=== PATIENT | female | born 1980 | race Caucasian/White ===

== ENCOUNTER 2021-03-22 01:08 | Inpatient (IN) | payer OTHER ==
[~2021-03-22 01:08] MED LIST: Bupivacaine 0.25% 10 ML SDV ONE; Lidocaine 2% with EPINEPHrine 1:200,000 20 ML SDV ONE
[2021-03-22] MEDS ORDERED: Acetaminophen 325 MG Tab PO PRN (01:53)
[2021-03-22] MEDS ORDERED: Calcium Carbonate 500 MG Tab.Chew PO PRN (01:53)
[2021-03-22] MEDS ORDERED: Lidocaine 1% 50 ML MDV INJECT ONE (01:53)
[2021-03-22] MEDS ORDERED: Ondansetron 4 MG/2 ML SDV IVPUSH PRN ×2 (01:53→06:20)
[2021-03-22] MEDS ORDERED: Sodium Chloride 0.9% 10 ML Syringe FLUSH PRN (01:53)
[2021-03-22] MEDS ORDERED: Misoprostol 100 MCG Tab VAG PRN (01:53)
[2021-03-22] MEDS ORDERED: Oxytocin/Lactated Ringers 10 UNIT/1,000 ML BAG IV SCH ×2 (02:00)
[2021-03-22] MEDS ORDERED: Misoprostol 25 MCG (1/4 of 100 MCG) Tab VAG PRN (03:00)
[2021-03-22] MEDS ORDERED: ePHEDrine 50 MG/ML SDV IVPUSH PRN (06:20)
[2021-03-22] MEDS ORDERED: fentaNYL 100 MCG/2 ML SDV EPIDUR PRN (06:20)
--- NOTE | 2021-03-22 06:24 | PCM.PREANE ---
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 down right leg: none present currently), Tingling (left arm on therapy) Other: Reports: Diabetes (Gestational DM: BS=89 @ 0607), Sinus Problem (seasonal allergies) - Physical Assessment NPO Status Date: 03/22/21 NPO Status Time: 06:00 (water) Vital Signs: Last Vital Signs Temp 36.9 C 03/22/21 01:15 Pulse Resp 16 03/22/21 01:15 BP 117/58 L 03/22/21 01:15 Pulse Ox Height: 1.68 m Weight: 125.509 kg ASA Class: 3 Mental Status: Alert & Oriented x3 Airway Class: Mallampati = 2 Dentition: Reports: Normal Dentition, Caries Thyro-Mental Finger Breadths: 3 Mouth Opening Finger Breadths: 3 ROM/Head Extension: Full Lungs: Clear to Auscultation, Normal Respiratory Effort Cardiovascular: Regular Rate, Regular Rhythm, No Murmurs - Lab Values: Laboratory Last Values WBC 11.09 K/mm3 (3.98-10.04) H 03/22/21 02:09 RBC 4.68 M/mm3 (3.98-5.22) 03/22/21 02:09 Hgb 13.7 gm/dl (11.2-15.7) 03/22/21 02:09 Hct 41.0 % (34.1-44.9) 03/22/21 02:09 MCV 87.6 fl (79.4-94.8) 03/22/21 02:09 MCH 29.3 pg (25.6-32.2) 03/22/21 02:09 MCHC 33.4 g/dl (32.2-35.5) 03/22/21 02:09 RDW Std Deviation 44.5 fL (36.4-46.3) 03/22/21 02:09 Plt Count 225 K/mm3 (182-369) 03/22/21 02:09 MPV 10.0 fl (9.4-12.3) 03/22/21 02:09 Neut % (Auto) 64.1 % (34.0-71.1) 03/22/21 02:09 Lymph % (Auto) 26.5 % (19.3-51.7) 03/22/21 02:09 Schleicher % (Auto) 7.8 % (4.7-12.5) 03/22/21 02:09 Eos % (Auto) 1.0 (0.7-5.8) 03/22/21 02:09 Baso % (Auto) 0.1 % (0.1-1.2) 03/22/21 02:09 Neut # (Auto) 7.11 K/mm3 (1.56-6.13) H 03/22/21 02:09 Lymph # (Auto) 2.94 K/mm3 (1.18-3.74) 03/22/21 02:09 Schleicher # (Auto) 0.87 K/mm3 (0.24-0.36) H 03/22/21 02:09 Eos # (Auto) 0.11 K/mm3 (0.04-0.36) 03/22/21 02:09 Baso # (Auto) 0.01 K/mm3 (0.01-0.08) 03/22/21 02:09 POC Glucose 89 mg/dL (70-99) 03/22/21 06:07 Membrane Rupture Positive H 03/22/21 01:15 SARS-CoV-2 RNA (CHAO) Negative (NEGATIVE) 03/22/21 01:31 Above labs reviewed and noted and within acceptable ranges to proceed with epidural if desired. 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: Musculoskeletal History: Reports: Other (See Below) Other Musculoskeletal History: planter fasciatis - Past Surgical History HEENT Surgical History: Reports: Adenoidectomy, Oral Surgery, Tonsillectomy GI Surgical History: Reports: Appendectomy - SUBSTANCE USE Tobacco Use Status *Q: Former Tobacco User Recreational Drug Use History: No - HOME MEDS Home Medications: Home Meds Albuterol [Ventolin HFA] 2 puff .XX Q6HR PRN 03/22/21 [History] Ascorbic Acid [Vitamin C] 500 mg PO DAILY 03/22/21 [History] Aspirin [Aspirin EC] 81 mg PO DAILY 03/22/21 [History] Fexofenadine [Shelley] 180 mg PO DAILY 03/22/21 [History] Fluticasone Propion/Salmeterol [Advair 250-50 Diskus] 1 each IH BID 03/22/21 [History] Fluticasone Propionate [Flonase] 16 gm NS DAILY 03/22/21 [History] Insulin Detemir [Levemir Flextouch] 12 unit SQ BEDTIME 03/22/21 [History] L.acidoph,Paracasei, B.lactis [Probiotic] 1 each PO DAILY 03/22/21 [History] Levocetirizine Dihydrochloride [Xyzal] 5 mg PO DAILY 03/22/21 [History] Montelukast [Singulair] 10 mg PO DAILY 03/22/21 [History] Olopatadine [Patanol 0.1% Ophth Soln] 1 drop EYEBOTH BID 03/22/21 [History] Omeprazole Magnesium [Prilosec Otc] 20 mg PO DAILY 03/22/21 [History] No122/Iron/Folic Acid [ Multi Tablet] 2 each PO DAILY 03/22/21 [History] Zinc 12.5 mg PO DAILY 03/22/21 [History] - CURRENT (IN HOUSE) MEDS Current Meds: Current Medications Acetaminophen (Acetaminophen 325 Mg Tab) 650 mg PO Q4H PRN PRN Reason: Pain (Mild 1-3) and fever Calcium Carbonate/Glycine (Calcium Carbonate 500 Mg Tab.Chew) 1,000 mg PO Q2H PRN PRN Reason: Indigestion Lactated Ringer's (Ringers, Lactated) 1,000 mls @ 100 mls/hr IV ASDIRECTED LEONARD Oxytocin/Lactated Ringer's (Pitocin In Lr 10 Units/1,000 Ml) 10 unit in 1,000 mls @ 500 mls/hr IV .CONTINUOUS LEONARD Oxytocin/Lactated Ringer's (Pitocin In Lr 10 Units/1,000 Ml) 10 unit in 1,000 mls @ 12 mls/hr IV TITRATE LEONARD; Protocol Misoprostol (Misoprostol 25 Mcg (1/4 Of 100 Mcg) Tab) 25 mcg VAG Q4HR PRN PRN Reason: cervical ripening Last Admin: 03/22/21 02:37 Dose: 25 mcg Documented by: Nalbuphine HCl (Nalbuphine 10 Mg/1 Ml Vial) 10 mg IVPUSH Q2H PRN PRN Reason: Pain Ondansetron HCl (Ondansetron 4 Mg/2 Ml Sdv) 4 mg IVPUSH Q4H PRN PRN Reason: Nausea/Vomiting Sodium Chloride (Sodium Chloride 0.9% 10 Ml Syringe) 10 ml FLUSH ASDIRECTED PRN PRN Reason: Keep Vein Open Discontinued Medications Lidocaine HCl (Lidocaine 1% 50 Ml Mdv) 50 ml INJECT ONETIME ONE Stop: 03/22/21 01:54 Misoprostol (Misoprostol 100 Mcg Tab) 25 mcg VAG Q4HR PRN PRN Reason: cervical ripening
[2021-03-22] MEDS ORDERED: Bupivacaine/fentaNYL/NS 100 ML Bag EPIDUR SCH (06:30)
--- NOTE | 2021-03-22 07:31 | PCM.LDHP ---
L&D History of Present Illness - General Date of Service: 03/22/21 Admit Problem/Dx: Patient Status Order with Admit Dx/Problem 03/22/21 01:15 Patient Status [ADT] Routine 03/22/21 01:55 Patient Status [ADT] Routine Admission Diagnosis/Problem Admission Diagnosis/Problem Term Source of Information: Patient History Limitations: Reports: No Limitations - History of Present Illness Introduction:: Patient is a 41 y/o at 37 0/7 wks who in early AM hours with PROM . This occurred yesterday at 2300 or so. Not initially patricia much when presented. Was given one dose of Cytotec early this AM around 0230 and now notes contractions more notable and bothersome - Related Data Allergies/Adverse Reactions: Allergies Allergy/AdvReac Type Severity Reaction Status Date / Time lactose Allergy Diarrhea Verified 03/22/21 02:10 Home Medications: Home Meds Albuterol [Ventolin HFA] 2 puff .XX Q6HR PRN 03/22/21 [History] Ascorbic Acid [Vitamin C] 500 mg PO DAILY 03/22/21 [History] Aspirin [Aspirin EC] 81 mg PO DAILY 03/22/21 [History] Fexofenadine [Shelley] 180 mg PO DAILY 03/22/21 [History] Fluticasone Propion/Salmeterol [Advair 250-50 Diskus] 1 each IH BID 03/22/21 [History] Fluticasone Propionate [Flonase] 16 gm NS DAILY 03/22/21 [History] Insulin Detemir [Levemir Flextouch] 12 unit SQ BEDTIME 03/22/21 [History] L.acidoph,Paracasei, B.lactis [Probiotic] 1 each PO DAILY 03/22/21 [History] Levocetirizine Dihydrochloride [Xyzal] 5 mg PO DAILY 03/22/21 [History] Montelukast [Singulair] 10 mg PO DAILY 03/22/21 [History] Olopatadine [Patanol 0.1% Ophth Soln] 1 drop EYEBOTH BID 03/22/21 [History] Omeprazole Magnesium [Prilosec Otc] 20 mg PO DAILY 03/22/21 [History] No122/Iron/Folic Acid [ Multi Tablet] 2 each PO DAILY 03/22/21 [History] Zinc 12.5 mg PO DAILY 03/22/21 [History] Past Medical History Respiratory History: Reports: Asthma Other Respiratory History: environmental allergies 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 LMP (Approximate): Musculoskeletal History: Reports: Other (See Below) Other Musculoskeletal History: plantar fasciitis Dermatologic History: Reports: Eczema - Infectious Disease History Infectious Disease History: Reports: Meningitis (Viral) - Past Surgical History HEENT Surgical History: Reports: Adenoidectomy, Oral Surgery, Tonsillectomy GI Surgical History: Reports: Appendectomy Social & Family History - Family History Family Medical History: Unobtainable - Tobacco Use Tobacco Use Status *Q: Former Tobacco User Used Tobacco, but Quit: Yes Month/Year Tobacco Last Used: 09/2006 - Alcohol Use Alcohol Use History: No - Recreational Drug Use Recreational Drug Use: No H&P Review of Systems - Review of Systems: Review Of Systems: See Below General: Reports: No Symptoms Pulmonary: Reports: No Symptoms Cardiovascular: Reports: No Symptoms Gastrointestinal: Reports: Abdominal Pain Genitourinary: Reports: No Symptoms Musculoskeletal: Reports: No Symptoms Skin: Reports: No Symptoms Psychiatric: Reports: No Symptoms Neurological: Reports: No Symptoms L&D Exam - Exam Exam: See Below - Vital Signs Vital Signs: Last Vital Signs Temp 36.9 C 03/22/21 01:15 Pulse Resp 16 03/22/21 01:15 BP 117/58 L 03/22/21 01:15 Pulse Ox Weight: 125.509 kg - OB Specific Contraction Intensity: Moderate Movement: Active Heart Tones: Present Heart Tones per Min: 120 Heart Rate (FHR) Variability: Moderate (6-25 bpm) Presentation: Vertex - Palacios Score Palacios Score Cervix Position: Anterior Palacios Score Consistency: Soft Palacios Score Effacement: 51-70% Palacios Score Dilation: 1-2 cm Palacios Score 's Station: -2 Palacios Score Total: 8 - Exam General: Alert, Oriented, Cooperative Lungs: Clear to Auscultation, Normal Respiratory Effort Cardiovascular: Regular Rate, Regular Rhythm GI/Abdominal Exam: Soft, Non-Tender Genitourinary: Normal external exam Extremities: Normal Inspection Skin: Warm, Dry, Intact - Patient Data Lab Results Last 24 hrs: Laboratory Results - last 24 hr 03/22/21 03/22/2103/22/21 Range/Units 01:15 01:31 02:09 WBC 11.09 H (3.98-10.04) K/mm3 RBC 4.68 (3.98-5.22) M/mm3 Hgb 13.7 (11.2-15.7) gm/dl Hct 41.0 (34.1-44.9) % MCV 87.6 (79.4-94.8) fl MCH 29.3 (25.6-32.2) pg MCHC 33.4 (32.2-35.5) g/dl RDW Std Deviation 44.5 (36.4-46.3) fL Plt Count 225 (182-369) K/mm3 MPV 10.0 (9.4-12.3) fl Neut % (Auto) 64.1 (34.0-71.1) % Lymph % (Auto) 26.5 (19.3-51.7) % Merrick % (Auto) 7.8 (4.7-12.5) % Eos % (Auto) 1.0 (0.7-5.8) Baso % (Auto) 0.1 (0.1-1.2) % Neut # (Auto) 7.11 H (1.56-6.13) K/mm3 Lymph # (Auto) 2.94 (1.18-3.74) K/mm3 Merrick # (Auto) 0.87 H (0.24-0.36) K/mm3 Eos # (Auto) 0.11 (0.04-0.36) K/mm3 Baso # (Auto) 0.01 (0.01-0.08) K/mm3 POC Glucose (70-99) mg/dL Membrane Rupture Positive H SARS-CoV-2 RNA (CHAO) Negative (NEGATIVE) 03/22/21 03/22/21 Range/Units 02:20 06:07 WBC (3.98-10.04) K/mm3 RBC (3.98-5.22) M/mm3 Hgb (11.2-15.7) gm/dl Hct (34.1-44.9) % MCV (79.4-94.8) fl MCH (25.6-32.2) pg MCHC (32.2-35.5) g/dl RDW Std Deviation (36.4-46.3) fL Plt Count (182-369) K/mm3 MPV (9.4-12.3) fl Neut % (Auto) (34.0-71.1) % Lymph % (Auto) (19.3-51.7) % Merrick % (Auto) (4.7-12.5) % Eos % (Auto) (0.7-5.8) Baso % (Auto) (0.1-1.2) % Neut # (Auto) (1.56-6.13) K/mm3 Lymph # (Auto) (1.18-3.74) K/mm3 Merrick # (Auto) (0.24-0.36) K/mm3 Eos # (Auto) (0.04-0.36) K/mm3 Baso # (Auto) (0.01-0.08) K/mm3 POC Glucose 84 89 (70-99) mg/dL Membrane Rupture SARS-CoV-2 RNA (CHAO) (NEGATIVE) Result Diagrams: 03/22/21 02:09 - Problem List (1) 37 weeks gestation of SNOMED Code(s): 45553429 ICD Code: Z3A.37 - 37 WEEKS GESTATION OF Status: Acute Current Visit: Yes (2) Gestational diabetes requiring insulin SNOMED Code(s): 75361503, 920138454 ICD Code: O24.414 - GESTATIONAL DIABETES IN , INSULIN CONTROLLED Status: Acute Current Visit: Yes (3) Premature rupture of membranes SNOMED Code(s): 87534985 ICD Code: O42.90 - ALLYSON ROM, 7TH0 BETW RUPT & ONST LABR, UNSP WEEKS OF GEST Status: Acute Current Visit: Yes Qualifiers: PROM onset of labor timing: unspecified duration between rupture of membranes and onset of labor PROM gestational age: full term Qualified Code(s): O42.92 - Full-term premature rupture of membranes, unspecified as to length of time between rupture and onset of labor Problem List Initiated/Reviewed/Updated: Yes Orders Last 24hrs: Active Orders 24 hr Category Date Time Status Patient Status [ADT] Routine ADT 03/22/21 01:55 Active Activity as Tolerated [RC] PFP Care 03/22/21 01:55 Active Blood Glucose Check, Bedside [RC] Q4HR Care 03/22/21 01:15 Active Communication Order [RC] ASDIRECTED Care 03/22/21 01:55 Active Communication Order [RC] ASDIRECTED Care 03/22/21 01:55 Active Communication Order [RC] ASDIRECTED Care 03/22/21 01:55 Active Communication Order [RC] ASDIRECTED Care 03/22/21 01:55 Active Heart Tones [RC] ASDIRECTED Care 03/22/21 01:56 Active Monitoring [RC] INTERMITTENT Care 03/22/21 01:55 Active Notify Provider [RC] ASDIRECTED Care 03/22/21 01:55 Active Notify Provider [RC] ASDIRECTED Care 03/22/21 06:20 Active Notify Provider [RC] PFP Care 03/22/21 01:55 Active Notify Provider [RC] PRN Care 03/22/21 01:55 Active Oxygen Therapy [RC] ASDIRECTED Care 03/22/21 06:20 Active Peripheral IV Care [RC] Q4HR Care 03/22/21 01:56 Active Pulse Oximetry [RC] ASDIRECTED Care 03/22/21 06:20 Active Pump Management, Intrathecal [RC] ASDIRECTED Care 03/22/21 01:56 Active Urinary Catheter Assessment [RC] ASDIRECTED Care 03/22/21 01:53 Active Vaginal Exam [RC] ASDIRECTED Care 03/22/21 01:55 Active Regular Diet [DIET] Diet 03/22/21 Breakfast Active BLOOD BANK HOLD SPECIMEN [BBK] Stat Lab 03/22/21 01:53 Ordered RAPID PLASMA REAGIN,RPR [CHEM] Routine Lab 03/22/21 02:09 Received Acetaminophen [TylenoL] Med 03/22/21 01:53 Active 650 mg PO Q4H PRN Bupivacaine/fentaNYL/NS [fentaNYL/Bupivacaine/NS 2 MCG- Med 03/22/21 06:30 Active 0.125% 100 ML] 100 ml EPIDUR ASDIRECTED Calcium Carbonate [Tums] Med 03/22/21 01:53 Active 1,000 mg PO Q2H PRN Lactated Ringers [Ringers, Lactated] 1,000 ml Med 03/22/21 02:00 Active IV ASDIRECTED Nalbuphine [Nubain] Med 03/22/21 01:53 Active 10 mg IVPUSH Q2H PRN Ondansetron [Zofran] Med 03/22/21 06:20 Active 4 mg IVPUSH ONETIME PRN Ondansetron [Zofran] Med 03/22/21 01:53 Active 4 mg IVPUSH Q4H PRN Oxytocin/Lactated Ringers [Pitocin in LR 10 Units/1,000 Med 03/22/21 02:00 Active ML] 10 unit in 1,000 ml IV .CONTINUOUS Oxytocin/Lactated Ringers [Pitocin in LR 10 Units/1,000 Med 03/22/21 02:00 Active ML] 10 unit in 1,000 ml IV TITRATE Phenylephrine HCl In 0.9% NaCl [Phenylephrine 1 MG/10 Med 03/22/21 06:20 Active ML-NS] 0.1 mg IVPUSH Q10M PRN Sodium Chloride 0.9% [Saline Flush] Med 03/22/21 01:53 Active 10 ml FLUSH ASDIRECTED PRN ePHEDrine [ePHEDrine sulfate] Med 03/22/21 06:20 Active 5 mg IVPUSH ASDIRECTED PRN fentaNYL [Sublimaze] Med 03/22/21 06:20 Active 100 mcg EPIDUR Q3H PRN miSOPROStoL [Cytotec] Med 03/22/21 03:00 Active 25 mcg VAG Q4HR PRN Electronic Heart Tones Ext w TOCO [WOMSER] Oth 03/22/21 01:55 Ordered Routine Electronic Heart Tones Internal [WOMSER] Per Unit Oth 03/22/21 01:55 Ordered Routine Peripheral IV Insertion Adult [OM.PC] Routine Oth 03/22/21 01:55 Ordered Resuscitation Status Routine Resus Stat 03/22/21 01:15 Ordered Medication Orders Acetaminophen (Acetaminophen 325 Mg Tab) 650 mg PO Q4H PRN PRN Reason: Pain (Mild 1-3) and fever Calcium Carbonate/Glycine (Calcium Carbonate 500 Mg Tab.Chew) 1,000 mg PO Q2H PRN PRN Reason: Indigestion Ephedrine Sulfate (Ephedrine 50 Mg/Ml Sdv) 5 mg IVPUSH ASDIRECTED PRN PRN Reason: Hypotension Fentanyl (Fentanyl 100 Mcg/2 Ml Sdv) 100 mcg EPIDUR Q3H PRN PRN Reason: Pain Fentanyl/Bupivacaine HCl (Bupivacaine/Fentanyl/Ns 100 Ml Bag) 100 ml EPIDUR ASDIRECTED LEONARD Lactated Ringer's (Ringers, Lactated) 1,000 mls @ 100 mls/hr IV ASDIRECTED LEONARD Oxytocin/Lactated Ringer's (Pitocin In Lr 10 Units/1,000 Ml) 10 unit in 1,000 mls @ 500 mls/hr IV .CONTINUOUS LEONARD Oxytocin/Lactated Ringer's (Pitocin In Lr 10 Units/1,000 Ml) 10 unit in 1,000 mls @ 12 mls/hr IV TITRATE LEONARD; Protocol Miscellaneous Medication (Phenylephrine Hcl In 0.9% Nacl 1 Mg/10 Ml Syringe) 0.1 mg IVPUSH Q10M PRN PRN Reason: Hypotension Misoprostol (Misoprostol 25 Mcg (1/4 Of 100 Mcg) Tab) 25 mcg VAG Q4HR PRN PRN Reason: cervical ripening Last Admin: 03/22/21 02:37 Dose: 25 mcg Documented by: ZACHARY Nalbuphine HCl (Nalbuphine 10 Mg/1 Ml Vial) 10 mg IVPUSH Q2H PRN PRN Reason: Pain Ondansetron HCl (Ondansetron 4 Mg/2 Ml Sdv) 4 mg IVPUSH Q4H PRN PRN Reason: Nausea/Vomiting Ondansetron HCl (Ondansetron 4 Mg/2 Ml Sdv) 4 mg IVPUSH ONETIME PRN PRN Reason: Nausea/Vomiting Sodium Chloride (Sodium Chloride 0.9% 10 Ml Syringe) 10 ml FLUSH ASDIRECTED PRN PRN Reason: Keep Vein Open Assessment/Plan Comment:: * Labs previously done * GBS negative * Blood sugars q4 in early labor, q2 when more active * Received one dose of cytotec on admission as cervix still with long length at that time. Now more effaced. Will switch to pitocin if/when needed * Pain management per patient preference * Anticipate
[2021-03-22] MEDS: Nalbuphine 10 MG/1 ML Vial IVPUSH PRN ×2 (10:04→12:14)
[2021-03-22] MEDS: Lactated Ringers 1,000 ML IV SCH ×5 (10:51→22:49)
--- NOTE | 2021-03-22 12:53 | PCM.PNLD ---
Labor Progress Note - VS & Meds Vital Signs: Last Vital Signs Temp 36.9 C 03/22/21 01:15 Pulse Resp 16 03/22/21 01:15 BP 117/58 L 03/22/21 01:15 Pulse Ox Active Medications: Current Medications Acetaminophen (Acetaminophen 325 Mg Tab) 650 mg PO Q4H PRN PRN Reason: Pain (Mild 1-3) and fever Calcium Carbonate/Glycine (Calcium Carbonate 500 Mg Tab.Chew) 1,000 mg PO Q2H PRN PRN Reason: Indigestion Ephedrine Sulfate (Ephedrine 50 Mg/Ml Sdv) 5 mg IVPUSH ASDIRECTED PRN PRN Reason: Hypotension Fentanyl (Fentanyl 100 Mcg/2 Ml Sdv) 100 mcg EPIDUR Q3H PRN PRN Reason: Pain Fentanyl/Bupivacaine HCl (Bupivacaine/Fentanyl/Ns 100 Ml Bag) 100 ml EPIDUR ASDIRECTED LEONARD Lactated Ringer's (Ringers, Lactated) 1,000 mls @ 100 mls/hr IV ASDIRECTED LEONARD Last Admin: 03/22/21 10:51 Dose: 100 mls/hr Documented by: Oxytocin/Lactated Ringer's (Pitocin In Lr 10 Units/1,000 Ml) 10 unit in 1,000 mls @ 500 mls/hr IV .CONTINUOUS LEONARD Oxytocin/Lactated Ringer's (Pitocin In Lr 10 Units/1,000 Ml) 10 unit in 1,000 mls @ 12 mls/hr IV TITRATE LEONARD; Protocol Last Titration: 03/22/21 12:45 Dose: 0 munits/min, 0 mls/hr Documented by: Insulin Glargine (Insulin Glargine,Hum.Rec.Anlog 100 Unit/Ml 3 Ml Pen) 12 unit SUBCUT BEDTIME LEONARD Miscellaneous Medication (Phenylephrine Hcl In 0.9% Nacl 1 Mg/10 Ml Syringe) 0.1 mg IVPUSH Q10M PRN PRN Reason: Hypotension Nalbuphine HCl (Nalbuphine 10 Mg/1 Ml Vial) 10 mg IVPUSH Q2H PRN PRN Reason: Pain Last Admin: 03/22/21 12:14 Dose: 10 mg Documented by: Ondansetron HCl (Ondansetron 4 Mg/2 Ml Sdv) 4 mg IVPUSH Q4H PRN PRN Reason: Nausea/Vomiting Last Admin: 03/22/21 08:24 Dose: 4 mg Documented by: Ondansetron HCl (Ondansetron 4 Mg/2 Ml Sdv) 4 mg IVPUSH ONETIME PRN PRN Reason: Nausea/Vomiting Sodium Chloride (Sodium Chloride 0.9% 10 Ml Syringe) 10 ml FLUSH ASDIRECTED PRN PRN Reason: Keep Vein Open Discontinued Medications Lidocaine HCl (Lidocaine 1% 50 Ml Mdv) 50 ml INJECT ONETIME ONE Stop: 03/22/21 01:54 Misoprostol (Misoprostol 100 Mcg Tab) 25 mcg VAG Q4HR PRN PRN Reason: cervical ripening Misoprostol (Misoprostol 25 Mcg (1/4 Of 100 Mcg) Tab) 25 mcg VAG Q4HR PRN PRN Reason: cervical ripening Last Admin: 03/22/21 02:37 Dose: 25 mcg Documented by: - Uterine Contractions Uterine Monitoring Mode: External [place] Contraction Intensity: Moderate to Strong - Monitoring Monitor Mode: External Ultrasound Heart Rate (FHR) Baseline: 115 Heart Rate (FHR) Variability: Moderate (6-25 bpm) Accelerations: Present, 15x15 Decelerations: Early, Recurrent (>50% x 20 min) Strip Review: Category I - Vaginal Exam Dilation (cm): 2-3 Effacement (Percent): 90 Station: -2 Cervical Position: Anterior - Labor Progress (Free Text) Labor Progress: On 4 of Pitocin. Early decelerations into the 90's (rare into upper 80's) noted. Patient much more uncomfortable. Will stop Pitocin to allow patient to get her epidural. Will place IUPC/FSE once epidural complete to monitor more closely.
--- NOTE | 2021-03-22 16:42 | PCM.PNLD ---
Labor Progress Note - VS & Meds Vital Signs: Last Vital Signs Temp 36.9 C 03/22/21 01:15 Pulse Resp 16 03/22/21 01:15 BP 117/58 L 03/22/21 01:15 Pulse Ox Active Medications: Current Medications Acetaminophen (Acetaminophen 325 Mg Tab) 650 mg PO Q4H PRN PRN Reason: Pain (Mild 1-3) and fever Calcium Carbonate/Glycine (Calcium Carbonate 500 Mg Tab.Chew) 1,000 mg PO Q2H PRN PRN Reason: Indigestion Ephedrine Sulfate (Ephedrine 50 Mg/Ml Sdv) 5 mg IVPUSH ASDIRECTED PRN PRN Reason: Hypotension Fentanyl (Fentanyl 100 Mcg/2 Ml Sdv) 100 mcg EPIDUR Q3H PRN PRN Reason: Pain Last Admin: 03/22/21 13:08 Dose: 100 mcg Documented by: Fentanyl/Bupivacaine HCl (Bupivacaine/Fentanyl/Ns 100 Ml Bag) 100 ml EPIDUR ASDIRECTED LEONARD Last Admin: 03/22/21 13:09 Dose: 100 ml Documented by: Lactated Ringer's (Ringers, Lactated) 1,000 mls @ 100 mls/hr IV ASDIRECTED LEONARD Last Admin: 03/22/21 14:35 Dose: 100 mls/hr Documented by: Oxytocin/Lactated Ringer's (Pitocin In Lr 10 Units/1,000 Ml) 10 unit in 1,000 mls @ 500 mls/hr IV .CONTINUOUS LEONARD Oxytocin/Lactated Ringer's (Pitocin In Lr 10 Units/1,000 Ml) 10 unit in 1,000 mls @ 12 mls/hr IV TITRATE LEONARD; Protocol Last Titration: 03/22/21 16:40 Dose: 3 munits/min, 18 mls/hr Documented by: Insulin Glargine (Insulin Glargine,Hum.Rec.Anlog 100 Unit/Ml 3 Ml Pen) 12 unit SUBCUT BEDTIME LEONARD Miscellaneous Medication (Phenylephrine Hcl In 0.9% Nacl 1 Mg/10 Ml Syringe) 0.1 mg IVPUSH Q10M PRN PRN Reason: Hypotension Nalbuphine HCl (Nalbuphine 10 Mg/1 Ml Vial) 10 mg IVPUSH Q2H PRN PRN Reason: Pain Last Admin: 03/22/21 12:14 Dose: 10 mg Documented by: Ondansetron HCl (Ondansetron 4 Mg/2 Ml Sdv) 4 mg IVPUSH Q4H PRN PRN Reason: Nausea/Vomiting Last Admin: 03/22/21 08:24 Dose: 4 mg Documented by: Ondansetron HCl (Ondansetron 4 Mg/2 Ml Sdv) 4 mg IVPUSH ONETIME PRN PRN Reason: Nausea/Vomiting Sodium Chloride (Sodium Chloride 0.9% 10 Ml Syringe) 10 ml FLUSH ASDIRECTED PRN PRN Reason: Keep Vein Open Discontinued Medications Lidocaine HCl (Lidocaine 1% 50 Ml Mdv) 50 ml INJECT ONETIME ONE Stop: 03/22/21 01:54 Misoprostol (Misoprostol 100 Mcg Tab) 25 mcg VAG Q4HR PRN PRN Reason: cervical ripening Misoprostol (Misoprostol 25 Mcg (1/4 Of 100 Mcg) Tab) 25 mcg VAG Q4HR PRN PRN Reason: cervical ripening Last Admin: 03/22/21 02:37 Dose: 25 mcg Documented by: - Uterine Contractions Uterine Monitoring Mode: External [place] Contraction Intensity: Moderate to Strong - Monitoring Monitor Mode: External Ultrasound Heart Rate (FHR) Baseline: 115 Heart Rate (FHR) Variability: Moderate (6-25 bpm) Accelerations: Present, 15x15 Decelerations: Early, Recurrent (>50% x 20 min) Strip Review: Category I - Vaginal Exam Dilation (cm): 4-5 Effacement (Percent): 90 Station: -2 Cervical Position: Anterior - Labor Progress (Free Text) Labor Progress: Doing well. Comfortable with epidural. Pitocin currently at 2. Will increase to 3. IUPC placed to facilitate augmentation. Still with deeper early decelerations and some variables.
--- NOTE | 2021-03-22 19:14 | PCM.PNLD ---
Labor Progress Note - VS & Meds Vital Signs: Last Vital Signs Temp 36.9 C 03/22/21 01:15 Pulse Resp 16 03/22/21 01:15 BP 117/58 L 03/22/21 01:15 Pulse Ox Active Medications: Current Medications Acetaminophen (Acetaminophen 325 Mg Tab) 650 mg PO Q4H PRN PRN Reason: Pain (Mild 1-3) and fever Calcium Carbonate/Glycine (Calcium Carbonate 500 Mg Tab.Chew) 1,000 mg PO Q2H PRN PRN Reason: Indigestion Ephedrine Sulfate (Ephedrine 50 Mg/Ml Sdv) 5 mg IVPUSH ASDIRECTED PRN PRN Reason: Hypotension Fentanyl (Fentanyl 100 Mcg/2 Ml Sdv) 100 mcg EPIDUR Q3H PRN PRN Reason: Pain Last Admin: 03/22/21 13:08 Dose: 100 mcg Documented by: Fentanyl/Bupivacaine HCl (Bupivacaine/Fentanyl/Ns 100 Ml Bag) 100 ml EPIDUR ASDIRECTED LEONARD Last Admin: 03/22/21 13:09 Dose: 100 ml Documented by: Lactated Ringer's (Ringers, Lactated) 1,000 mls @ 100 mls/hr IV ASDIRECTED LEONARD Last Admin: 03/22/21 14:35 Dose: 100 mls/hr Documented by: Oxytocin/Lactated Ringer's (Pitocin In Lr 10 Units/1,000 Ml) 10 unit in 1,000 mls @ 500 mls/hr IV .CONTINUOUS LEONARD Oxytocin/Lactated Ringer's (Pitocin In Lr 10 Units/1,000 Ml) 10 unit in 1,000 mls @ 12 mls/hr IV TITRATE LEONARD; Protocol Last Titration: 03/22/21 18:20 Dose: 4 munits/min, 24 mls/hr Documented by: Insulin Glargine (Insulin Glargine,Hum.Rec.Anlog 100 Unit/Ml 3 Ml Pen) 12 unit SUBCUT BEDTIME LEONARD Miscellaneous Medication (Phenylephrine Hcl In 0.9% Nacl 1 Mg/10 Ml Syringe) 0.1 mg IVPUSH Q10M PRN PRN Reason: Hypotension Nalbuphine HCl (Nalbuphine 10 Mg/1 Ml Vial) 10 mg IVPUSH Q2H PRN PRN Reason: Pain Last Admin: 03/22/21 12:14 Dose: 10 mg Documented by: Ondansetron HCl (Ondansetron 4 Mg/2 Ml Sdv) 4 mg IVPUSH Q4H PRN PRN Reason: Nausea/Vomiting Last Admin: 03/22/21 08:24 Dose: 4 mg Documented by: Ondansetron HCl (Ondansetron 4 Mg/2 Ml Sdv) 4 mg IVPUSH ONETIME PRN PRN Reason: Nausea/Vomiting Sodium Chloride (Sodium Chloride 0.9% 10 Ml Syringe) 10 ml FLUSH ASDIRECTED PRN PRN Reason: Keep Vein Open Discontinued Medications Lidocaine HCl (Lidocaine 1% 50 Ml Mdv) 50 ml INJECT ONETIME ONE Stop: 03/22/21 01:54 Misoprostol (Misoprostol 100 Mcg Tab) 25 mcg VAG Q4HR PRN PRN Reason: cervical ripening Misoprostol (Misoprostol 25 Mcg (1/4 Of 100 Mcg) Tab) 25 mcg VAG Q4HR PRN PRN Reason: cervical ripening Last Admin: 03/22/21 02:37 Dose: 25 mcg Documented by: - Uterine Contractions Uterine Monitoring Mode: IUPC Contraction Intensity: Moderate to Strong - Monitoring Monitor Mode: External Ultrasound Heart Rate (FHR) Baseline: 120 Heart Rate (FHR) Variability: Moderate (6-25 bpm) Accelerations: Present, 15x15 Decelerations: Early, Variable, Recurrent (>50% x 20 min) Strip Review: Category I - Vaginal Exam Dilation (cm): 6-7 Effacement (Percent): 90 Station: -1 Cervical Position: Anterior - Labor Progress (Free Text) Labor Progress: Doing well. On 4 of pitocin. No signs of infection. Continue present management
[2021-03-22] MEDS ORDERED: Insulin Glargine,Hum.Rec.Anlog 100 UNIT/ML 3 ML Pen SUBCUT SCH (21:00)
[2021-03-22] MEDS ORDERED: ceFAZolin 1 GM in Sodium Chloride 0.9% 100 ML IV ONE (22:29)
[2021-03-22] MEDS ORDERED: Azithromycin 500 MG in Sodium Chloride 0.9% 250 ML IV ONE (22:29)
[2021-03-22] MEDS ORDERED: Metoclopramide 10 MG/2 ML SDV IVPUSH ONE (22:29)
[2021-03-22] MEDS ORDERED: Citric Acid/Sodium Citrate Solution 30 ML Cup PO ONE (22:29)
[2021-03-22] MEDS ORDERED: ceFAZolin 2 GM in Premix Bag 1 BAG IV ONE (22:29)
--- NOTE | 2021-03-22 22:42 | PCM.SN.2 ---
- Free Text/Narrative Note: 2229 Patient with no change in cervical exam in last 3 hours. Reviewed no overt signs of chorioamnionitis, but starting to have a shift up in baseline. Reviewed could certainly try to continue to increase Pitocin, but concerns are potentially for CPD. Patient expressed understanding. After discussion does agree to . Ancef and Azithromycin pumping station engineer to OR. Jannette Leavitt MD
--- NOTE | 2021-03-22 22:50 | PCM.OPNOTE ---
- General Post-Op/Procedure Note Date of Surgery/Procedure: 03/22/21 Operative Procedure(s): Primary low transverse Findings: Baby girl in a vertex presentation. Weight of 2.97 kg. APGARS of 8 & 9. Grossly normal appearance of the uterus, fallopian tubes, and ovaries. Pre Op Diagnosis: AMA. GODMA2. PROM. FTP in 1st stage Post-Op Diagnosis: Same Anesthesia Technique: Epidural Primary Surgeon: Jannette Leavitt Secondary Surgeon: Reji Bejarano Anesthesia Provider: Piyush Hannah Reason Logistics Intern Was Necessary: BMI of patient. Speed/safety of procedure Pathology: Cord blood collected. Placenta discarded Fluid Replacement, Intraop: 1,300 Output, Urine Amount: 150 EBL in mLs: 1,000 Complications: None Condition: Good Free Text/Narrative:: The risks, benefits, indications, potential complications, and alternatives were explained to the patient and informed consent obtained. After induction of anesthesia, the patient was placed in a supine position and then draped and prepped in the usual sterile manner. A Pfannenstiel incision was made and carried down through the subcutaneous tissue to the fascia. Fascial incision was made and extended transversely. The fascia was from the underlying rectus tissue superiorly and inferiorly. The peritoneum was identified and entered. Peritoneal incision was extended longitudinally. The utero-vesical peritoneal reflection was incised transversely and the bladder flap was bluntly freed from the lower uterine segment. A low transverse uterine incision was made sharply with a scalpel and extended bluntly in a cephalocaudad direction. A baby girl was delivered from a vertex presentation with APGARS as above. After the umbilical cord was clamped and cut cord blood was obtained for evaluation. The placenta was removed intact and appeared normal. The uterus was exteriorized and cleared of clots. The uterine outline, tubes and ovaries appeared normal. The uterine incision was closed with running locked sutures of 0 Vicryl. Hemostasis was obtained with a second imbricating layer of 0 Vicryl. The uterus was then placed back into the abdomen. The infracolic gutters were cleared of blood clots. Slight oozing noted from surfaces on uterus and so Noe- Seal placed along hysterotomy The fascia was then reapproximated with running sutures of 0 Vicryl. The subcutaneous tissue was irrigated with sterile warm normal saline, hemostasis obtained with cautery. This layer was also closed with a running 0 Vicryl. The skin was reapproximated with running Subcuticular 4-0 Monocryl sutures. The incision was sealed with Dermabond. Instrument, sponge, and needle counts were correct prior the abdominal closure and at the conclusion of the case.
[2021-03-22] MEDS ORDERED: fentaNYL 100 MCG/2 ML SDV ONE (23:14)
[2021-03-22] MEDS ORDERED: ceFAZolin 1 GM Vial ONE (23:15)
[2021-03-22] MEDS ORDERED: Dexmedetomidine 200 MCG/2 ML SDV ONE (23:25)
[2021-03-22] MEDS ORDERED: Oxytocin 10 Units/1 ML SDV ONE (23:35)
[2021-03-22] MEDS ORDERED: Morphine PF 10 MG/10 ML SDV ONE (23:40)
[2021-03-22] MEDS ORDERED: diphenhydrAMINE 50 MG/ML SDV IVPUSH PRN (23:54)
[2021-03-22] MEDS ORDERED: fentaNYL 100 MCG/2 ML SDV IVPUSH PRN (23:54)
[2021-03-22] MEDS ORDERED: Lactated Ringers 1,000 ML ONE (23:55)
[2021-03-23] MEDS ORDERED: Oxytocin 10 Units/1 ML SDV ONE (00:10)
[2021-03-23] MEDS ORDERED: Ketorolac 30 MG/ML SDV ONE (00:13)
--- NOTE | 2021-03-23 00:25 | PCM.POSTAN ---
POST ANESTHESIA ASSESSMENT - MENTAL STATUS Mental Status: Alert, Oriented - VITAL SIGNS Vital Signs: Last Vital Signs 127/54, 84 HR, 95% 13 RR 97.2 F - RESPIRATORY Respiratory Status: Respiratory Rate WNL, Airway Patent, O2 Saturation Stable - CARDIOVASCULAR CV Status: Pulse Rate WNL, Blood Pressure Stable - GASTROINTESTINAL GI Status: No Symptoms - PAIN Pain Score: 0 (post epidural) - POST OP HYDRATION Hydration Status: Adequate & Stable
[2021-03-23] MEDS ORDERED: diphenhydrAMINE 50 MG/ML SDV IVPUSH PRN (02:14)
[2021-03-23] MEDS ORDERED: Dextrose 5%-Lactated Ringers 1,000 ML IV SCH (02:14)
[2021-03-23] MEDS ORDERED: Naloxone 0.4 MG/ML SDV IVPUSH PRN (02:14)
[2021-03-23] MEDS: Ondansetron 4 MG/2 ML SDV IVPUSH PRN ×2 (03:16→23:26)
[2021-03-23] MEDS: Acetaminophen/oxyCODONE 325-5 MG Tab PO PRN ×3 (03:16→23:25)
[2021-03-23] MEDS: Ketorolac 30 MG/ML SDV IVPUSH SCH ×3 (06:21→20:24)
--- NOTE | 2021-03-23 06:50 | PCM48HPAN ---
Post Anesthesia Note - EVALUATION WITHIN 48HRS OF ANESTHETIC Vital Signs in Normal Range: Yes Patient Participated in Evaluation: Yes Respiratory Function Stable: Yes Airway Patent: Yes Cardiovascular Function Stable: Yes Hydration Status Stable: Yes Pain Control Satisfactory: Yes Nausea and Vomiting Control Satisfactory: Yes Mental Status Recovered: Yes Vital Signs: Last Vital Signs Temp 36.6 C 03/23/21 03:47 Pulse 72 03/23/21 05:02 Resp 14 03/23/21 06:00 BP 99/55 L 03/23/21 05:02 Pulse Ox 98 03/23/21 05:02
--- NOTE | 2021-03-23 07:37 | PCM.PNPP ---
- General Info Date of Service: 03/23/21 Functional Status: Reports: Pain Controlled, Tolerating Diet - Review of Systems General: Reports: No Symptoms Pulmonary: Reports: No Symptoms Cardiovascular: Reports: No Symptoms Gastrointestinal: Denies: Abdominal Pain Genitourinary: Reports: No Symptoms Musculoskeletal: Reports: No Symptoms - General Info Date of Service: 03/23/21 - Patient Data Vital Signs - Most Recent: Last Vital Signs Temp 36.6 C 03/23/21 03:47 Pulse 72 03/23/21 05:02 Resp 14 03/23/21 06:00 BP 99/55 L 03/23/21 05:02 Pulse Ox 98 03/23/21 05:02 Weight - Most Recent: 125.509 kg I&O - Last 24 Hours: Intake & Output 03/22/21 03/23/21 03/23/21 22:59 06:59 14:59 Intake Total 5470 Output Total 725 746 Balance -725 4724 Lab Results - Last 24 Hours: Laboratory Results - last 24 hr 03/22/21 03/22/21 03/22/21 Range/Units 02:09 02:09 10:03 POC Glucose 99 (70-99) mg/dL RPR Non-reactive (NONREACTIVE) Blood Type O POSITIVE Gel Antibody Screen Negative 03/22/21 03/22/21 03/22/21 Range/Units 13:39 15:58 18:13 POC Glucose 112 H 112 H 142 H (70-99) mg/dL RPR (NONREACTIVE) Blood Type Gel Antibody Screen 03/22/21 03/22/21 Range/Units 20:20 23:02 POC Glucose 136 H 129 H (70-99) mg/dL RPR (NONREACTIVE) Blood Type Gel Antibody Screen Med Orders - Current: Current Medications Diphenhydramine HCl (Diphenhydramine 50 Mg/Ml Sdv) 25 mg IVPUSH Q6H PRN PRN Reason: Itching or Nausea Docusate Sodium (Docusate Sodium 100 Mg Cap) 100 mg PO Q12H PRN PRN Reason: Constipation Fentanyl (Fentanyl 100 Mcg/2 Ml Sdv) 50 mcg IVPUSH Q5M PRN PRN Reason: Pain Dextrose/Lactated Ringer's (Dextrose 5%-Lactated Ringers) 1,000 mls @ 125 mls/hr IV ASDIRECTED LEONARD Stop: 03/23/21 10:13 Last Admin: 03/23/21 03:15 Dose: 125 mls/hr Documented by: Ibuprofen (Ibuprofen 600 Mg Tab) 600 mg PO Q6H PRN PRN Reason: mild pain or fever Ketorolac Tromethamine (Ketorolac 30 Mg/Ml Sdv) 30 mg IVPUSH Q6H [facility] Stop: 03/23/21 18:31 Last Admin: 03/23/21 06:21 Dose: 30 mg Documented by: Naloxone HCl (Naloxone 0.4 Mg/Ml Sdv) 0.1 mg IVPUSH SEECOMMENT PRN PRN Reason: Respiratory Depression Ondansetron HCl (Ondansetron 4 Mg/2 Ml Sdv) 4 mg IVPUSH ONETIME PRN PRN Reason: Nausea/Vomiting Last Admin: 03/23/21 03:16 Dose: 4 mg Documented by: Oxycodone/Acetaminophen (Acetaminophen/Oxycodone 325-5 Mg Tab) 1 tab PO Q4H PRN PRN Reason: Pain (moderate 4-6) Last Admin: 03/23/21 03:16 Dose: 1 tab Documented by: Oxycodone/Acetaminophen (Acetaminophen/Oxycodone 325-5 Mg Tab) 2 tab PO Q4H PRN PRN Reason: Pain (severe 7-10) Discontinued Medications Acetaminophen (Acetaminophen 325 Mg Tab) 650 mg PO Q4H PRN PRN Reason: Pain (Mild 1-3) and fever Calcium Carbonate/Glycine (Calcium Carbonate 500 Mg Tab.Chew) 1,000 mg PO Q2H PRN PRN Reason: Indigestion Cefazolin Sodium (Cefazolin 1 Gm Vial) Confirm Administered Dose 3 gm .ROUTE .STK-MED ONE Stop: 03/22/21 23:16 Citric Acid/Sodium Citrate (Citric Acid/Sodium Citrate Solution 30 Ml Cup) 30 ml PO ONETIME ONE Stop: 03/22/21 22:30 Last Admin: 03/22/21 22:48 Dose: 30 ml Documented by: Dexmedetomidine HCl (Dexmedetomidine 200 Mcg/2 Ml Sdv) Confirm Administered Dose 200 mcg .ROUTE .STK-MED ONE Stop: 03/22/21 23:26 Diphenhydramine HCl (Diphenhydramine 50 Mg/Ml Sdv) 25 mg IVPUSH Q6H PRN PRN Reason: Pruritis Ephedrine Sulfate (Ephedrine 50 Mg/Ml Sdv) 5 mg IVPUSH ASDIRECTED PRN PRN Reason: Hypotension Fentanyl (Fentanyl 100 Mcg/2 Ml Sdv) 100 mcg EPIDUR Q3H PRN PRN Reason: Pain Last Admin: 03/22/21 13:08 Dose: 100 mcg Documented by: Fentanyl (Fentanyl 100 Mcg/2 Ml Sdv) Confirm Administered Dose 100 mcg .ROUTE .STK-MED ONE Stop: 03/22/21 23:15 Fentanyl/Bupivacaine HCl (Bupivacaine/Fentanyl/Ns 100 Ml Bag) 100 ml EPIDUR ASDIRECTED LEONARD Last Admin: 03/22/21 13:09 Dose: 100 ml Documented by: Lactated Ringer's (Ringers, Lactated) 1,000 mls @ 100 mls/hr IV ASDIRECTED LEONARD Last Admin: 03/22/21 22:49 Dose: 100 mls/hr Documented by: Oxytocin/Lactated Ringer's (Pitocin In Lr 10 Units/1,000 Ml) 10 unit in 1,000 mls @ 500 mls/hr IV .CONTINUOUS LEONARD Oxytocin/Lactated Ringer's (Pitocin In Lr 10 Units/1,000 Ml) 10 unit in 1,000 mls @ 12 mls/hr IV TITRATE LEONARD; Protocol Last Titration: 03/22/21 22:30 Dose: 0 munits/min, 0 mls/hr Documented by: Cefazolin Sodium/Dextrose 2 gm (/ Premix) 50 mls @ 100 mls/hr IV ONETIME ONE Stop: 03/22/21 22:58 Last Admin: 03/23/21 02:16 Dose: Not Given Documented by: Cefazolin Sodium 1 gm/ Sodium (Chloride) 100 mls @ 100 mls/hr IV ONETIME ONE Stop: 03/22/21 23:28 Last Admin: 03/23/21 02:17 Dose: Not Given Documented by: Azithromycin 500 mg/ Sodium (Chloride) 250 mls @ 250 mls/hr IV ONETIME ONE Stop: 03/22/21 23:28 Last Admin: 03/22/21 22:49 Dose: 250 mls/hr Documented by: Lactated Ringer's (Ringers, Lactated) Confirm Administered Dose 1,000 mls @ as directed .ROUTE .STK-MED ONE Stop: 03/22/21 23:56 Insulin Glargine (Insulin Glargine,Hum.Rec.Anlog 100 Unit/Ml 3 Ml Pen) 12 unit SUBCUT BEDTIME LEONARD Last Admin: 03/23/21 02:15 Dose: Not Given Documented by: Ketorolac Tromethamine (Ketorolac 30 Mg/Ml Sdv) Confirm Administered Dose 30 mg .ROUTE .STK-MED ONE Stop: 03/23/21 00:14 Lidocaine HCl (Lidocaine 1% 50 Ml Mdv) 50 ml INJECT ONETIME ONE Stop: 03/22/21 01:54 Last Admin: 03/23/21 02:16 Dose: Not Given Documented by: Metoclopramide HCl (Metoclopramide 10 Mg/2 Ml Sdv) 10 mg IVPUSH ONETIME ONE Stop: 03/22/21 22:30 Last Admin: 03/22/21 22:49 Dose: 10 mg Documented by: Miscellaneous Medication (Phenylephrine Hcl In 0.9% Nacl 1 Mg/10 Ml Syringe) 0.1 mg IVPUSH Q10M PRN PRN Reason: Hypotension Miscellaneous Medication (Phenylephrine Hcl In 0.9% Nacl 1 Mg/10 Ml Syringe) Confirm Administered Dose 1 mg .ROUTE .STK-MED ONE Stop: 03/22/21 23:13 Misoprostol (Misoprostol 100 Mcg Tab) 25 mcg VAG Q4HR PRN PRN Reason: cervical ripening Misoprostol (Misoprostol 25 Mcg (1/4 Of 100 Mcg) Tab) 25 mcg VAG Q4HR PRN PRN Reason: cervical ripening Last Admin: 03/22/21 02:37 Dose: 25 mcg Documented by: Morphine Sulfate (Morphine Pf 10 Mg/10 Ml Sdv) Confirm Administered Dose 10 mg .ROUTE .STK-MED ONE Stop: 03/22/21 23:41 Nalbuphine HCl (Nalbuphine 10 Mg/1 Ml Vial) 10 mg IVPUSH Q2H PRN PRN Reason: Pain Last Admin: 03/22/21 12:14 Dose: 10 mg Documented by: Ondansetron HCl (Ondansetron 4 Mg/2 Ml Sdv) 4 mg IVPUSH Q4H PRN PRN Reason: Nausea/Vomiting Last Admin: 03/22/21 08:24 Dose: 4 mg Documented by: Ondansetron HCl (Ondansetron 4 Mg/2 Ml Sdv) 4 mg IVPUSH ONETIME PRN PRN Reason: Nausea/Vomiting Oxytocin (Oxytocin 10 Units/1 Ml Sdv) Confirm Administered Dose 10 unit .ROUTE .STK-MED ONE Stop: 03/22/21 23:36 Oxytocin (Oxytocin 10 Units/1 Ml Sdv) Confirm Administered Dose 10 unit .ROUTE .STK-MED ONE Stop: 03/23/21 00:11 Sodium Chloride (Sodium Chloride 0.9% 10 Ml Syringe) 10 ml FLUSH ASDIRECTED PRN PRN Reason: Keep Vein Open - Infant Interaction Infant Disposition, : in Room with Family Infant Interaction: Holding Infant Feeding: Attempted ; Nursed Fair/Poor Support Person: - Recovery Exam Fundal Tone: Firm Fundal Level: 1 Fingerbreadths Below Umbilicus Fundal Placement: Midline Lochia Amount: Scant Lochia Color: Rubra/Red Perineum Description: Intact, Minimal Bruising/Swelling Episiotomy/Laceration: None Bladder Status: Indwelling Catheter in Place (urine more clear today ) Urinary Elimination: Indwelling Catheter - Exam General: Alert, Oriented, Cooperative Lungs: Clear to Auscultation, Normal Respiratory Effort Cardiovascular: Regular Rate, Regular Rhythm GI/Abdominal Exam: Soft, Non-Tender Extremities: Normal Inspection, Pedal Edema Skin: Warm, Dry, Intact Wound/Incisions: Healing Well, No Drainage - Problem List & Annotations (1) 37 weeks gestation of SNOMED Code(s): 38810550 Code(s): Z3A.37 - 37 WEEKS GESTATION OF Status: Acute Current Visit: Yes (2) Gestational diabetes requiring insulin SNOMED Code(s): 39670664, 954466241 Code(s): O24.414 - GESTATIONAL DIABETES IN , INSULIN CONTROLLED Status: Acute Current Visit: Yes (3) Premature rupture of membranes SNOMED Code(s): 95791230 Code(s): O42.90 - [facility] ROM, 7TH0 BETW RUPT & ONST LABR, UNSP WEEKS OF GEST Status: Acute Current Visit: Yes Qualifiers: PROM onset of labor timing: unspecified duration between rupture of membranes and onset of labor PROM gestational age: full term Qualified Code(s): O42.92 - Full-term premature rupture of membranes, unspecified as to length of time between rupture and onset of labor (4) Failure to progress in first stage of labor SNOMED Code(s): 401765172 Code(s): [id number] - Status: Acute Current Visit: Yes (5) S/P primary low transverse SNOMED Code(s): 428954412, 83589264, 704758630, 293197442, 489070823 Code(s): Z98.891 - HISTORY OF UTERINE SCAR FROM PREVIOUS SURGERY Status: Ac [place] Current Visit: Yes - Problem List Review Problem List Initiated/Reviewed/Updated: Yes - My Orders Last 24 Hours: My Active Orders 03/23/21 02:14 Acetaminophen/oxyCODONE [Percocet 325-5 MG] 1 tab PO Q4H PRN Acetaminophen/oxyCODONE [Percocet 325-5 MG] 2 tab PO Q4H PRN Dextrose 5%-Lactated Ringers 1,000 ml IV ASDIRECTED Docusate Sodium [Colace] 100 mg PO Q12H PRN Naloxone [Narcan] 0.1 mg IVPUSH SEECOMMENT PRN diphenhydrAMINE [Benadryl] 25 mg IVPUSH Q6H PRN 03/23/21 02:14 Activity as Tolerated [RC] .Routine Antiembolic Devices [RC] PER UNIT ROUTINE Communication Order [RC] PER UNIT ROUTINE Intake and Output [RC] Q4HR May Shower [RC] PER UNIT ROUTINE Notify Provider Intake and Out [RC] ASDIRECTED RT Incentive Spirometry [RC] Q2HWA Assess Lochia [WOMSER] Per Unit Routine Assess Uterine Involution [WOMSER] Per Unit Routine Breast Pump [WOMSER] Per Unit Routine Heat Therapy [OM.PC] Per Unit Routine Peripheral IV Discontinue [OM.PC] Routine Sequential Compression Device [OM.PC] Per Unit Routine 03/23/21 06:30 Ketorolac [Toradol] 30 mg IVPUSH Q6H 03/23/21 Breakfast Regular Diet [DIET] 03/23/21 07:36 Blood Glucose Check, Bedside [RC] ONETIME 03/24/21 00:22 Urinary Catheter Removal [RC] Per Unit Routine 03/24/21 00:30 Ibuprofen [Motrin] 600 mg PO Q6H PRN 03/24/21 05:00 CBC W/O DIFF,HEMOGRAM [HEME] Routine - Assessment Assessment:: POD#1 - Plan Plan:: * Routine cares. Urine more clear today. Remove ontiveros this PM. CBC tomorrow AM * Breast feeding * Blood sugar this AM. 2hr GTT at 6 weeks * Discharge in 2 days
[2021-03-23] MEDS ORDERED: Ondansetron 4 MG/2 ML SDV IVPUSH PRN (07:50)
[2021-03-23] MEDS: Docusate Sodium 100 MG Cap PO PRN (09:31)
--- NOTE | 2021-03-23 21:39 | PCM.SN.2 ---
- Free Text/Narrative Note: 2129 Called by RN that patient had some slight drainage from incision for day shift. Right before called by RN patient felt a little burning and had release of a moderate amount of blood from incision. Presented to evaluate. Patient feels well. No significant pain. Moving around. Passing some gas. Still with some difficulty with breast feeding, but getting out good colostrum. * Abdomen soft, non distended, non tender, no rebound or guarding * Incision itself looks clean/dry with Dermabond seal over top. Not able to locate site of drainage. At superior aspect of mid incision there seems to be bruising about 3 x4 cm area consistent with possible underlying hematoma. * ABD pad with about 1/4-1/3 of dark and bright red blood present. Abdominal exam overall very appropriate. Question whether patient had release of a hematoma. No continued bleeding. No concerns of underlying disruption fo fascia. Pressure dressing with gauze, ABD pad, and paper tape applied. Will reassess in AM or sooner if needed. Jannette Leavitt MD
[2021-03-24] MEDS: Acetaminophen/oxyCODONE 325-5 MG Tab PO PRN ×4 (04:11→21:54)
[2021-03-24] MEDS: Ondansetron 4 MG/2 ML SDV IVPUSH PRN (04:11)
[2021-03-24] MEDS: Ibuprofen 600 MG Tab PO PRN ×3 (06:48→19:31)
--- NOTE | 2021-03-24 07:12 | PCM.PNPP ---
- General Info Date of Service: 03/24/21 Functional Status: Reports: Pain Controlled, Tolerating Diet, Ambulating, Urinating - Review of Systems General: Reports: No Symptoms Pulmonary: Reports: No Symptoms Cardiovascular: Reports: No Symptoms Gastrointestinal: Reports: No Symptoms Genitourinary: Reports: No Symptoms Musculoskeletal: Reports: No Symptoms Neurological: Reports: No Symptoms - General Info Date of Service: 03/24/21 - Patient Data Vital Signs - Most Recent: Last Vital Signs Temp 36.4 C 03/24/21 03:50 Pulse 85 03/24/21 03:50 Resp 16 03/24/21 03:50 BP 106/58 L 03/24/21 03:50 Pulse Ox 95 03/24/21 03:50 Weight - Most Recent: 125.509 kg I&O - Last 24 Hours: Intake & Output 03/23/21 03/24/21 03/24/21 22:59 06:59 14:59 Intake Total 500 Output Total 1420 1411 Balance -925 -1415 Lab Results - Last 24 Hours: Laboratory Results - last 24 hr 03/23/21 03/24/21 03/24/21 Range/Units 08:56 06:00 06:12 WBC 10.50 H (3.98-10.04) K/mm3 RBC 3.66 L (3.98-5.22) M/mm3 Hgb 10.7 L D (11.2-15.7) gm/dl Hct 32.9 L (34.1-44.9) % MCV 89.9 (79.4-94.8) fl MCH 29.2 (25.6-32.2) pg MCHC 32.5 (32.2-35.5) g/dl RDW Std Deviation 45.0 (36.4-46.3) fL Plt Count 193 (182-369) K/mm3 MPV 9.6 (9.4-12.3) fl POC Glucose 110 H 76 (70-99) mg/dL Med Orders - Current: Current Medications Diphenhydramine HCl (Diphenhydramine 50 Mg/Ml Sdv) 25 mg IVPUSH Q6H PRN PRN Reason: Itching or Nausea Docusate Sodium (Docusate Sodium 100 Mg Cap) 100 mg PO Q12H PRN PRN Reason: Constipation Last Admin: 03/23/21 09:31 Dose: 100 mg Documented by: Fentanyl (Fentanyl 100 Mcg/2 Ml Sdv) 50 mcg IVPUSH Q5M PRN PRN Reason: Pain Ibuprofen (Ibuprofen 600 Mg Tab) 600 mg PO Q6H PRN PRN Reason: mild pain or fever Last Admin: 03/24/21 06:48 Dose: 600 mg Documented by: Naloxone HCl (Naloxone 0.4 Mg/Ml Sdv) 0.1 mg IVPUSH SEECOMMENT PRN PRN Reason: Respiratory Depression Ondansetron HCl (Ondansetron 4 Mg/2 Ml Sdv) 4 mg IVPUSH ONETIME PRN PRN Reason: Nausea/Vomiting Last Admin: 03/24/21 04:11 Dose: 4 mg Documented by: Ondansetron HCl (Ondansetron 4 Mg/2 Ml Sdv) 4 mg IVPUSH Q4H PRN PRN Reason: Nausea Last Admin: 03/23/21 09:33 Dose: 4 mg Documented by: Oxycodone/Acetaminophen (Acetaminophen/Oxycodone 325-5 Mg Tab) 1 tab PO Q4H PRN PRN Reason: Pain (moderate 4-6) Last Admin: 03/23/21 23:25 Dose: 1 tab Documented by: Oxycodone/Acetaminophen (Acetaminophen/Oxycodone 325-5 Mg Tab) 2 tab PO Q4H PRN PRN Reason: Pain (severe 7-10) Last Admin: 03/24/21 04:11 Dose: 2 tab Documented by: Discontinued Medications Acetaminophen (Acetaminophen 325 Mg Tab) 650 mg PO Q4H PRN PRN Reason: Pain (Mild 1-3) and fever Calcium Carbonate/Glycine (Calcium Carbonate 500 Mg Tab.Chew) 1,000 mg PO Q2H PRN PRN Reason: Indigestion Cefazolin Sodium (Cefazolin 1 Gm Vial) Confirm Administered Dose 3 gm .ROUTE .STK-MED ONE Stop: 03/22/21 23:16 Citric Acid/Sodium Citrate (Citric Acid/Sodium Citrate Solution 30 Ml Cup) 30 ml PO ONETIME ONE Stop: 03/22/21 22:30 Last Admin: 03/22/21 22:48 Dose: 30 ml Documented by: Dexmedetomidine HCl (Dexmedetomidine 200 Mcg/2 Ml Sdv) Confirm Administered Dose 200 mcg .ROUTE .STK-MED ONE Stop: 03/22/21 23:26 Diphenhydramine HCl (Diphenhydramine 50 Mg/Ml Sdv) 25 mg IVPUSH Q6H PRN PRN Reason: Pruritis Ephedrine Sulfate (Ephedrine 50 Mg/Ml Sdv) 5 mg IVPUSH ASDIRECTED PRN PRN Reason: Hypotension Fentanyl (Fentanyl 100 Mcg/2 Ml Sdv) 100 mcg EPIDUR Q3H PRN PRN Reason: Pain Last Admin: 03/22/21 13:08 Dose: 100 mcg Documented by: Fentanyl (Fentanyl 100 Mcg/2 Ml Sdv) Confirm Administered Dose 100 mcg .ROUTE .STK-MED ONE Stop: 03/22/21 23:15 Fentanyl/Bupivacaine HCl (Bupivacaine/Fentanyl/Ns 100 Ml Bag) 100 ml EPIDUR ASDIRECTED [facility] Last Admin: 03/22/21 13:09 Dose: 100 ml Documented by: Lactated Ringer's (Ringers, Lactated) 1,000 mls @ 100 mls/hr IV ASDIRECTED [facility] Last Admin: 03/22/21 22:49 Dose: 100 mls/hr Documented by: Oxytocin/Lactated Ringer's (Pitocin In Lr 10 Units/1,000 Ml) 10 unit in 1,000 mls @ 500 mls/hr IV .CONTINUOUS [facility] Oxytocin/Lactated Ringer's (Pitocin In Lr 10 Units/1,000 Ml) 10 unit in 1,000 mls @ 12 mls/hr IV TITRATE [facility]; Protocol Last Titration: 03/22/21 22:30 Dose: 0 munits/min, 0 mls/hr Documented by: Cefazolin Sodium/Dextrose 2 gm (/ Premix) 50 mls @ 100 mls/hr IV ONETIME ONE Stop: 03/22/21 22:58 Last Admin: 03/23/21 02:16 Dose: Not Given Documented by: Cefazolin Sodium 1 gm/ Sodium (Chloride) 100 mls @ 100 mls/hr IV ONETIME ONE Stop: 03/22/21 23:28 Last Admin: 03/23/21 02:17 Dose: Not Given Documented by: Azithromycin 500 mg/ Sodium (Chloride) 250 mls @ 250 mls/hr IV ONETIME ONE Stop: 03/22/21 23:28 Last Admin: 03/22/21 22:49 Dose: 250 mls/hr Documented by: Lactated Ringer's (Ringers, Lactated) Confirm Administered Dose 1,000 mls @ as directed .ROUTE .STK-MED ONE Stop: 03/22/21 23:56 Dextrose/Lactated Ringer's (Dextrose 5%-Lactated Ringers) 1,000 mls @ 125 mls/hr IV ASDIRECTED [facility] Stop: 03/23/21 10:13 Last Admin: 03/23/21 03:15 Dose: 125 mls/hr Documented by: Insulin Glargine (Insulin Glargine,Hum.Rec.Anlog 100 Unit/Ml 3 Ml Pen) 12 unit SUBCUT BEDTIME [facility] Last Admin: 03/23/21 02:15 Dose: Not Given Documented by: Ketorolac Tromethamine (Ketorolac 30 Mg/Ml Sdv) Confirm Administered Dose 30 mg .ROUTE .STK-MED ONE Stop: 03/23/21 00:14 Ketorolac Tromethamine (Ketorolac 30 Mg/Ml Sdv) 30 mg IVPUSH Q6H [facility] Stop: 03/23/21 18:31 Last Admin: 03/23/21 20:24 Dose: 30 mg Documented by: Lidocaine HCl (Lidocaine 1% 50 Ml Mdv) 50 ml INJECT ONETIME ONE Stop: 03/22/21 01:54 Last Admin: 03/23/21 02:16 Dose: Not Given Documented by: Metoclopramide HCl (Metoclopramide 10 Mg/2 Ml Sdv) 10 mg IVPUSH ONETIME ONE Stop: 03/22/21 22:30 Last Admin: 03/22/21 22:49 Dose: 10 mg Documented by: Miscellaneous Medication (Phenylephrine Hcl In 0.9% Nacl 1 Mg/10 Ml Syringe) 0.1 mg IVPUSH Q10M PRN PRN Reason: Hypotension Miscellaneous Medication (Phenylephrine Hcl In 0.9% Nacl 1 Mg/10 Ml Syringe) Confirm Administered Dose 1 mg .ROUTE .STK-MED ONE Stop: 03/22/21 23:13 Misoprostol (Misoprostol 100 Mcg Tab) 25 mcg VAG Q4HR PRN PRN Reason: cervical ripening Misoprostol (Misoprostol 25 Mcg (1/4 Of 100 Mcg) Tab) 25 mcg VAG Q4HR PRN PRN Reason: cervical ripening Last Admin: 03/22/21 02:37 Dose: 25 mcg Documented by: Morphine Sulfate (Morphine Pf 10 Mg/10 Ml Sdv) Confirm Administered Dose 10 mg .ROUTE .STK-MED ONE Stop: 03/22/21 23:41 Nalbuphine HCl (Nalbuphine 10 Mg/1 Ml Vial) 10 mg IVPUSH Q2H PRN PRN Reason: Pain Last Admin: 03/22/21 12:14 Dose: 10 mg Documented by: Ondansetron HCl (Ondansetron 4 Mg/2 Ml Sdv) 4 mg IVPUSH Q4H PRN PRN Reason: Nausea/Vomiting Last Admin: 03/22/21 08:24 Dose: 4 mg Documented by: Ondansetron HCl (Ondansetron 4 Mg/2 Ml Sdv) 4 mg IVPUSH ONETIME PRN PRN Reason: Nausea/Vomiting Oxytocin (Oxytocin 10 Units/1 Ml Sdv) Confirm Administered Dose 10 unit .ROUTE .STK-MED ONE Stop: 03/22/21 23:36 Oxytocin (Oxytocin 10 Units/1 Ml Sdv) Confirm Administered Dose 10 unit .ROUTE .STK-MED ONE Stop: 03/23/21 00:11 Sodium Chloride (Sodium Chloride 0.9% 10 Ml Syringe) 10 ml FLUSH ASDIRECTED PRN PRN Reason: Keep Vein Open - Infant Interaction Disposition, : in Room with Family Interaction: Holding Infant Infant Feeding: Attempted ; Nursed Fair/Poor Support Person: - Recovery Exam Fundal Tone: Firm Fundal Level: 1 Fingerbreadths Below Umbilicus Fundal Placement: Midline Lochia Amount: Scant, Small Lochia Color: Rubra/Red Perineum Description: Intact, Minimal Bruising/Swelling Episiotomy/Laceration: None Bladder Status: Voiding Urinary Elimination: Voided - Exam General: Alert, Oriented, Cooperative Lungs: Clear to Auscultation, Normal Respiratory Effort Cardiovascular: Regular Rate, Regular Rhythm GI/Abdominal Exam: Soft, Non-Tender, No Distention. No: Guarding, Rebound Extremities: Normal Inspection Skin: Warm, Dry, Intact Wound/Incisions: Healing Well, Drainage (very small, less than quarter sized area of serosanginous drainage on gauze ) - Problem List & Annotations (1) 37 weeks gestation of SNOMED Code(s): 08951230 Code(s): Z3A.37 - 37 WEEKS GESTATION OF Status: Acute Current Visit: Yes (2) Gestational diabetes requiring insulin SNOMED Code(s): 79852343, 038094984 Code(s): O24.414 - GESTATIONAL DIABETES IN , INSULIN CONTROLLED Status: Acute Current Visit: Yes (3) Premature rupture of membranes SNOMED Code(s): 76230742 Code(s): O42.90 - ALLYSON ROM, 7TH0 BETW RUPT & ONST LABR, UNSP WEEKS OF GEST Status: Acute Current Visit: Yes Qualifiers: PROM onset of labor timing: unspecified duration between rupture of membranes and onset of labor PROM gestational age: full term Qualified Code(s): O42.92 - Full-term premature rupture of membranes, unspecified as to length of time between rupture and onset of labor (4) Failure to progress in first stage of labor SNOMED Code(s): 559717036 Code(s): MAR3489 - Status: Acute Current Visit: Yes (5) S/P primary low transverse SNOMED Code(s): 441502664, 51731881, 055685981, 011298597, 235764048 Code(s): Z98.891 - HISTORY OF UTERINE SCAR FROM PREVIOUS SURGERY Status: Acute Current Visit: Yes - Problem List Review Problem List Initiated/Reviewed/Updated: Yes - My Orders Last 24 Hours: My Active Orders 03/23/21 Breakfast Regular Diet [DIET] 03/23/21 07:36 Blood Glucose Check, Bedside [RC] ONETIME 03/23/21 07:50 Ondansetron [Zofran] 4 mg IVPUSH Q4H PRN 03/24/21 00:30 Ibuprofen [Motrin] 600 mg PO Q6H PRN - Assessment Assessment:: POD#2 - Plan Plan:: * Routine cares. * Breast feeding, but baby has had difficulty with latch and did mostly formula feeding overnight. Reviewed need to start pumping today then if desires milk to come in * Blood sugar this AM appropriate. 2hr GTT at 6 weeks * Discharge tomorrow
[2021-03-24] MEDS: Docusate Sodium 100 MG Cap PO PRN (19:30)
[2021-03-25] MEDS: Acetaminophen/oxyCODONE 325-5 MG Tab PO PRN ×2 (03:00→08:02)
[2021-03-25 05:04] VITALS: PULSE 86
--- NOTE | 2021-03-25 11:32 | PCM.DCSUM1 ---
Discharge Summary - Hospital Course Free Text/Narrative:: Tita is a 41-year-old 1 now para 1-0-0-1 white female who was admitted on 03/22/2021 with premature rupture of membranes. She is at 37-0/7 weeks at that time. Patient was initially induced with Cytotec. She progressed through part of stage I of labor and then failed progressed thereafter. Decision was made to proceed to section. Preoperative diagnosis was advanced maternal age. Gestational diabetic. rupture membranes. Chava lure to progress in first stage. Please see operative report for details. Postoperatively patient had one episode of bleeding from her incision but this resolved and did not recur during the remainder of her postoperative stay. She is desiring discharge home today. She is made good bowel, bladder and ambulatory recovery. She is breast-feeding without problems. Follow-up CBC was within normal limits for postoperative period. Condition: Good Date of Surgery/Procedure: - Discharge Data Discharge Date: 03/25/21 Discharge Disposition: Home, Self-Care 01 Condition: Good - Referral to Home Health Primary Care Physician: Jannette Leavitt MD - Discharge Diagnosis/Problem(s) (1) 37 weeks gestation of SNOMED Code(s): 03396382 ICD Code: Z3A.37 - 37 WEEKS GESTATION OF Status: Acute Current Visit: Yes (2) Failure to progress in first stage of labor SNOMED Code(s): 478495797 ICD Code: GPL1035 - Status: Acute Current Visit: Yes (3) Gestational diabetes requiring insulin SNOMED Code(s): 67282893, 174735520 ICD Code: O24.414 - GESTATIONAL DIABETES IN , INSULIN CONTROLLED Status: Acute Current Visit: Yes (4) Premature rupture of membranes SNOMED Code(s): 53236491 ICD Code: O42.90 - ALLYSON ROM, 7TH0 BETW RUPT & ONST LABR, UNSP WEEKS OF GEST Status: Acute Current Visit: Yes Qualifiers: PROM onset of labor timing: unspecified duration between rupture of membranes and onset of labor PROM gestational age: full term Qualified Code(s): O42.92 - Full-term premature rupture of membranes, unspecified as to length of time between rupture and onset of labor (5) S/P primary low transverse SNOMED Code(s): 735580848, 43740757, 694265677, 347805589, 123392716 ICD Code: Z98.891 - HISTORY OF UTERINE SCAR FROM PREVIOUS SURGERY Status: Acute Current Visit: Yes - Patient Summary/Data Operative Procedure(s) Performed: Primary low transverse - Patient Instructions Diet: Regular Diet as Tolerated (Nursing diet with increased calories and calcium is recommended.) Activity: As Tolerated (No lifting greater than 10 pounds x 10 days. No intercourse or tampons until bleeding resolves. No driving a car x1 week.) Driving: Do Not Drive Showering/Bathing: May Shower Wound/Incision Care: Keep Operative Site/Wound Site Clean and Dry Notify Provider of: Fever, Increased Pain, Swelling and Redness, Nausea and/or Vomiting - Discharge Plan Home Medications: Home Meds Albuterol [Ventolin HFA] 2 puff .XX Q6HR PRN 03/22/21 [History] Ascorbic Acid [Vitamin C] 500 mg PO DAILY 03/22/21 [History] Aspirin [Aspirin EC] 81 mg PO DAILY 03/22/21 [History] Fexofenadine [Shelley] 180 mg PO DAILY 03/22/21 [History] Fluticasone Propion/Salmeterol [Advair 250-50 Diskus] 1 each IH BID 03/22/21 [History] Fluticasone Propionate [Flonase] 16 gm NS DAILY 03/22/21 [History] L.acidoph,Paracasei, B.lactis [Probiotic] 1 each PO DAILY 03/22/21 [History] Levocetirizine Dihydrochloride [Xyzal] 5 mg PO DAILY 03/22/21 [History] Montelukast [Singulair] 10 mg PO DAILY 03/22/21 [History] Olopatadine [Patanol 0.1% Ophth Soln] 1 drop EYEBOTH BID 03/22/21 [History] No122/Iron/Folic Acid [ Multi Tablet] 2 each PO DAILY 03/22/21 [History] Zinc 12.5 mg PO DAILY 03/22/21 [History] Acetaminophen/oxyCODONE [Percocet 325-5 MG] 2 tab PO Q4H PRN tablet 03/25/21 [Rx] Ibuprofen [Motrin] 600 mg PO Q6H PRN tablet 03/25/21 [Rx] Referrals: Jannette Leavitt MD [Primary Care Provider] - (Patient is to call for an appointment with Dr. Leavitt to follow-up in the next 1 to 2 weeks.) - Discharge Summary/Plan Comment DC Time >30 min.: No Total # of Minutes for Discharge Time: 10 Discharge Summary/Plan Comment: Discharge instructions: 1. Discharge home 2. Diet, activity and follow-up discussed with patient. Recommend nursing diet with increased calories and calcium. 3. Precautions given concern increased pain, bleeding, temperature, signs/symptoms of DVT/PE. 4. Medications per home medication was printed, discussed with and given to the patient. 5. Return to clinic-Dr. Leavitt at [facility] in2 weeks. Condition: Good - Patient Data Vitals - Most Recent: Last Vital Signs Temp 36.4 C 03/25/21 03:11 Pulse 86 03/25/21 03:11 Resp 16 03/25/21 03:11 BP 113/76 03/25/21 03:11 Pulse Ox 92 L 03/25/21 03:11 Weight - Most Recent: 125.509 kg Med Orders - Current: Current Medications Diphenhydramine HCl (Diphenhydramine 50 Mg/Ml Sdv) 25 mg IVPUSH Q6H PRN PRN Reason: Itching or Nausea Docusate Sodium (Docusate Sodium 100 Mg Cap) 100 mg PO Q12H PRN PRN Reason: Constipation Last Admin: 03/24/21 19:30 Dose: 100 mg Documented by: Fentanyl (Fentanyl 100 Mcg/2 Ml Sdv) 50 mcg IVPUSH Q5M PRN PRN Reason: Pain Ibuprofen (Ibuprofen 600 Mg Tab) 600 mg PO Q6H PRN PRN Reason: mild pain or fever Last Admin: 03/24/21 19:31 Dose: 600 mg Documented by: Naloxone HCl (Naloxone 0.4 Mg/Ml Sdv) 0.1 mg IVPUSH SEECOMMENT PRN PRN Reason: Respiratory Depression Ondansetron HCl (Ondansetron 4 Mg/2 Ml Sdv) 4 mg IVPUSH Q4H PRN PRN Reason: Nausea Last Admin: 03/23/21 09:33 Dose: 4 mg Documented by: Oxycodone/Acetaminophen (Acetaminophen/Oxycodone 325-5 Mg Tab) 1 tab PO Q4H PRN PRN Reason: Pain (moderate 4-6) Last Admin: 03/24/21 14:02 Dose: 1 tab Documented by: Oxycodone/Acetaminophen (Acetaminophen/Oxycodone 325-5 Mg Tab) 2 tab PO Q4H PRN PRN Reason: Pain (severe 7-10) Last Admin: 03/25/21 08:02 Dose: 2 tab Documented by: Discontinued Medications Acetaminophen (Acetaminophen 325 Mg Tab) 650 mg PO Q4H PRN PRN Reason: Pain (Mild 1-3) and fever Calcium Carbonate/Glycine (Calcium Carbonate 500 Mg Tab.Chew) 1,000 mg PO Q2H PRN PRN Reason: Indigestion Cefazolin Sodium (Cefazolin 1 Gm Vial) Confirm Administered Dose 3 gm .ROUTE .STK-MED ONE Stop: 03/22/21 23:16 Citric Acid/Sodium Citrate (Citric Acid/Sodium Citrate Solution 30 Ml Cup) 30 ml PO ONETIME ONE Stop: 03/22/21 22:30 Last Admin: 03/22/21 22:48 Dose: 30 ml Documented by: Dexmedetomidine HCl (Dexmedetomidine 200 Mcg/2 Ml Sdv) Confirm Administered Dose 200 mcg .ROUTE .STK-MED ONE Stop: 03/22/21 23:26 Diphenhydramine HCl (Diphenhydramine 50 Mg/Ml Sdv) 25 mg IVPUSH Q6H PRN PRN Reason: Pruritis Ephedrine Sulfate (Ephedrine 50 Mg/Ml Sdv) 5 mg IVPUSH ASDIRECTED PRN PRN Reason: Hypotension Fentanyl (Fentanyl 100 Mcg/2 Ml Sdv) 100 mcg EPIDUR Q3H PRN PRN Reason: Pain Last Admin: 03/22/21 13:08 Dose: 100 mcg Documented by: Fentanyl (Fentanyl 100 Mcg/2 Ml Sdv) Confirm Administered Dose 100 mcg .ROUTE .STK-MED ONE Stop: 03/22/21 23:15 Fentanyl/Bupivacaine HCl (Bupivacaine/Fentanyl/Ns 100 Ml Bag) 100 ml EPIDUR ASDIRECTED [facility] Last Admin: 03/22/21 13:09 Dose: 100 ml Documented by: Lactated Ringer's (Ringers, Lactated) 1,000 mls @ 100 mls/hr IV ASDIRECTED [facility] Last Admin: 03/22/21 22:49 Dose: 100 mls/hr Documented by: Oxytocin/Lactated Ringer's (Pitocin In Lr 10 Units/1,000 Ml) 10 unit in 1,000 mls @ 500 mls/hr IV .CONTINUOUS [facility]ON[facility] Oxytocin/Lactated Ringer's (Pitocin In Lr 10 Units/1,000 Ml) 10 unit in 1,000 mls @ 12 mls/hr IV TITRATE [facility]; Protocol Last Titration: 03/22/21 22:30 Dose: 0 munits/min, 0 mls/hr Documented by: Cefazolin Sodium/Dextrose 2 gm (/ Premix) 50 mls @ 100 mls/hr IV ONETIME ONE Stop: 03/22/21 22:58 Last Admin: 03/23/21 02:16 Dose: Not Given Documented by: Cefazolin Sodium 1 gm/ Sodium (Chloride) 100 mls @ 100 mls/hr IV ONETIME ONE Stop: 03/22/21 23:28 Last Admin: 03/23/21 02:17 Dose: Not Given Documented by: Azithromycin 500 mg/ Sodium (Chloride) 250 mls @ 250 mls/hr IV ONETIME ONE Stop: 03/22/21 23:28 Last Admin: 03/22/21 22:49 Dose: 250 mls/hr Documented by: Lactated Ringer's (Ringers, Lactated) Confirm Administered Dose 1,000 mls @ as directed .ROUTE .STK-MED ONE Stop: 03/22/21 23:56 Dextrose/Lactated Ringer's (Dextrose 5%-Lactated Ringers) 1,000 mls @ 125 mls/hr IV ASDIRECTED [facility] Stop: 03/23/21 10:13 Last Admin: 03/23/21 03:15 Dose: 125 mls/hr Documented by: Insulin Glargine (Insulin Glargine,Hum.Rec.Anlog 100 Unit/Ml 3 Ml Pen) 12 unit SUBCUT BEDTIME [facility] Last Admin: 03/23/21 02:15 Dose: Not Given Documented by: Ketorolac Tromethamine (Ketorolac 30 Mg/Ml Sdv) Confirm Administered Dose 30 mg .ROUTE .STK-MED ONE Stop: 03/23/21 00:14 Ketorolac Tromethamine (Ketorolac 30 Mg/Ml Sdv) 30 mg IVPUSH Q6H [facility] Stop: 03/23/21 18:31 Last Admin: 03/23/21 20:24 Dose: 30 mg Documented by: Lidocaine HCl (Lidocaine 1% 50 Ml Mdv) 50 ml INJECT ONETIME ONE Stop: 03/22/21 01:54 Last Admin: 03/23/21 02:16 Dose: Not Given Documented by: Metoclopramide HCl (Metoclopramide 10 Mg/2 Ml Sdv) 10 mg IVPUSH ONETIME ONE Stop: 03/22/21 22:30 Last Admin: 03/22/21 22:49 Dose: 10 mg Documented by: Miscellaneous Medication (Phenylephrine Hcl In 0.9% Nacl 1 Mg/10 Ml Syringe) 0.1 mg IVPUSH Q10M PRN PRN Reason: Hypotension Miscellaneous Medication (Phenylephrine Hcl In 0.9% Nacl 1 Mg/10 Ml Syringe) Confirm Administered Dose 1 mg .ROUTE .STK-MED ONE Stop: 03/22/21 23:13 Misoprostol (Misoprostol 100 Mcg Tab) 25 mcg VAG Q4HR PRN PRN Reason: cervical ripening Misoprostol (Misoprostol 25 Mcg (1/4 Of 100 Mcg) Tab) 25 mcg VAG Q4HR PRN PRN Reason: cervical ripening Last Admin: 03/22/21 02:37 Dose: 25 mcg Documented by: Morphine Sulfate (Morphine Pf 10 Mg/10 Ml Sdv) Confirm Administered Dose 10 mg .ROUTE .STK-MED ONE Stop: 03/22/21 23:41 Nalbuphine HCl (Nalbuphine 10 Mg/1 Ml Vial) 10 mg IVPUSH Q2H PRN PRN Reason: Pain Last Admin: 03/22/21 12:14 Dose: 10 mg Documented by: Ondansetron HCl (Ondansetron 4 Mg/2 Ml Sdv) 4 mg IVPUSH Q4H PRN PRN Reason: Nausea/Vomiting Last Admin: 03/22/21 08:24 Dose: 4 mg Documented by: Ondansetron HCl (Ondansetron 4 Mg/2 Ml Sdv) 4 mg IVPUSH ONETIME PRN PRN Reason: Nausea/Vomiting Ondansetron HCl (Ondansetron 4 Mg/2 Ml Sdv) 4 mg IVPUSH ONETIME PRN PRN Reason: Nausea/Vomiting Last Admin: 03/24/21 04:11 Dose: 4 mg Documented by: Oxytocin (Oxytocin 10 Units/1 Ml Sdv) Confirm Administered Dose 10 unit .ROUTE .STK-MED ONE Stop: 03/22/21 23:36 Oxytocin (Oxytocin 10 Units/1 Ml Sdv) Confirm Administered Dose 10 unit .ROUTE .STK-MED ONE Stop: 03/23/21 00:11 Sodium Chloride (Sodium Chloride 0.9% 10 Ml Syringe) 10 ml FLUSH ASDIRECTED PRN PRN Reason: Keep Vein Open
[2021-03-25] MEDS: Ibuprofen 600 MG Tab PO PRN (12:53)
[2021-03-25 13:39] VITALS: BP 104/47
== END 2021-03-25 15:15 | disposition home or self-care (01) | DRG 788 ==
LOC: JD.OBCHECK 01:08 → JD.OB 01:14 → JD.OBCHECK 01:54 → JD.OB 01:55 → OBSVTOIN 23:33 → JD.OB 23:34
PROVIDERS: ADMIT Obstetrics & Gynecology; ATTEND Obstetrics & Gynecology
PROC: 10D00Z1 Extraction of Products of Conception, Low, Open Approach (ICD-10-PCS; principal; 2021-03-22)
PROC: 3E0P7VZ Introduction of Hormone into Female Reproductive, Via Natural or Artificial Opening (ICD-10-PCS; 2021-03-22)
PROC: 10H07YZ Insertion of Other Device into Products of Conception, Via Natural or Artificial Opening (ICD-10-PCS; 2021-03-22)
PROC: 3E0R3BZ Introduction of Anesthetic Agent into Spinal Canal, Percutaneous Approach (ICD-10-PCS; 2021-03-22)
PROC: 00HU33Z Insertion of Infusion Device into Spinal Canal, Percutaneous Approach (ICD-10-PCS; 2021-03-22)
DX: O42.92 Full-term premature rupture of membranes, unspecified as to length of time between rupture and onset of labor (principal); O24.424 Gestational diabetes mellitus in childbirth, insulin controlled; Z37.0 Single live birth; O99.52 Diseases of the respiratory system complicating childbirth; J45.909 Unspecified asthma, uncomplicated; O76 Abnormality in fetal heart rate and rhythm complicating labor and delivery; Z20.822 Contact with and (suspected) exposure to COVID-19; Z3A.37 37 weeks gestation of pregnancy; Z88.8 Allergy status to other drugs, medicaments and biological substances; Z90.49 Acquired absence of other specified parts of digestive tract; Z79.82 Long term (current) use of aspirin; Z79.4 Long term (current) use of insulin; Z87.891 Personal history of nicotine dependence
CPT/HCPCS: 01967; 01968; 36415; 51702; 59025; 82947; 84112; 85025; 85027; 86592; 86850; 86900; 86901; 99140; A9270-GY; J0456; J0690; J1885; J2270; J2300; J2370; J2405; J2590; J2765; J3010; J3490; J7050; J7120; J7121; U0002

== ENCOUNTER 2021-07-15 20:09 | Emergency (ER) | payer OTHER ==
[2021-07-15 20:23] VITALS: BP 130/93; PULSE 98
[2021-07-15] MEDS ORDERED: Sodium Chloride 0.9% 10 ML Syringe FLUSH PRN (20:25)
[2021-07-15] MEDS ORDERED: Ondansetron 4 MG/2 ML SDV IVPUSH ONE (20:25)
[2021-07-15] MEDS ORDERED: Sodium Chloride 0.9% 1,000 ML IV STA (20:25)
[2021-07-15] MEDS ORDERED: Ketorolac 30 MG/ML SDV IVPUSH ONE (21:07)
== END 2021-07-15 21:55 | disposition home or self-care (01) ==
LOC: JD.ED 20:09
DX: K52.9 Noninfective gastroenteritis and colitis, unspecified (principal); Z91.011 Allergy to milk products; Z79.82 Long term (current) use of aspirin; Z79.899 Other long term (current) drug therapy
CPT/HCPCS: 36415; 80053; 85025; 86140; 96374; 96375; 99284; J1885; J2405; J3490; J7030

== ENCOUNTER 2023-12-17 15:59 | Inpatient (IN) | payer OTHER ==
[2023-12-17] MEDS: diphenhydrAMINE 50 MG/ML SDV IVPUSH ONE (17:26)
[2023-12-17] MEDS: Ketorolac 30 MG/ML SDV IVPUSH ONE (17:26)
[2023-12-17] MEDS: Sodium Chloride 0.9% 1,000 ML IV ONE (17:27)
[2023-12-17] MEDS: Ondansetron 4 MG/2 ML SDV IVPUSH ONE (17:38)
[2023-12-17 17:48] LABS: BASOPHILS PERCENT AUTO 0.3 % (0.0-1.0); EOSINOPHILS PERCENT AUTO 0.7 % (0.0-6.0); HEMATOCRIT 43.5 % (37.0-47.0); HEMOGLOBIN 14.7 gm/dl (12.0-16.0); IMMATURE GRAN ABSOLUTE AUTO 0.03 K/mm3 (0.00-0.05); IMMATURE GRAN PERCENT AUTO 0.5 % (0.0-0.4); LYMPHOCYTES ABSOLUTE AUTO 1.6 K/mm3 (1.0-4.8); LYMPHOCYTES PERCENT AUTO 27.7 % (24.0-44.0); MEAN CORPUSCULAR HEMOGLOBIN 29.2 pg (28.0-32.0); MEAN CORPUSCULAR HGB CONC 33.8 g/dl (32.0-36.0); MEAN CORPUSCULAR VOLUME 86.5 fl (83.0-99.0); MEAN PLATELET VOLUME 9.7 fl (9.4-12.3); MONOCYTES ABSOLUTE AUTO 0.6 K/mm3 (0.0-0.8); MONOCYTES PERCENT AUTO 9.8 % (0.0-8.0); NEUTROPHILS ABSOLUTE AUTO 3.5 K/mm3 (1.8-7.7); PLATELET COUNT,PLT 245 K/mm3 (150-400); RED BLOOD CELL COUNT 5.03 M/mm3 (4.10-5.30); WHITE BLOOD CELL COUNT,WBC 5.81 K/mm3 (3.9-11.3)
[2023-12-17 18:17] LABS: A/G RATIO 1.1 (1-2); ALBUMIN 3.9 g/dl (3.4-5.0); ANION GAP 17.5 (5-15); BILIRUBIN TOTAL 0.4 mg/dL (0.2-1.0); C-REACTIVE PROTEIN 2.21 mg/dL (<0.30); CALCIUM 9.2 mg/dL (8.5-10.1); POTASSIUM,K 3.5 mEq/L (3.5-5.1); PROTEIN TOTAL,TP 7.5 g/dl (6.4-8.2)
[2023-12-17 18:31] LABS: CORONAVIRUS COVID-19 NAA NEGATIVE (NEGATIVE); INFLUENZA A NAA NEGATIVE (NEGATIVE); RESPIRATORY SYNCYTIAL VIR NAA NEGATIVE (NEGATIVE)
[2023-12-17] MEDS ORDERED: Naloxone 0.4 MG/ML SDV IVPUSH PRN (18:52)
[2023-12-17] MEDS: HYDROmorphone 0.5 MG/0.5 ML Syringe IVPUSH ONE (19:45)
[2023-12-17 21:02] LABS: PROTEIN,CSF 58.2 mg/dl (15-45)
[2023-12-17 21:34] LABS: TUBE NUMBER,CSF 2
[2023-12-17 21:36] LABS: APPEARANCE CSF CLEAR (CLEAR); COLOR,CSF COLORLESS; RBC,CSF 1 cells/uL (0-0); SUPERNATANT APPEAR,CSF NO XANTHOCHROMIA; TUBE VOLUME,CSF 2 ml; WBC,CSF 276 cells/uL (0-5)
[2023-12-17 21:38] LABS: MONONUCLEAR, CSF 45.7 % (70.0-90.0); POLYMORPHONUCLEAR, CSF 54.3 % (2-4)
[2023-12-17] MEDS: Acetaminophen 325 MG Tab PO ONE (22:05)
[2023-12-17] MEDS ORDERED: Sennosides/Docusate Sodium 50-8.6 MG Tab PO PRN (23:10)
[2023-12-17] MEDS ORDERED: Melatonin 3 MG Tab PO PRN (23:10)
[2023-12-17 23:43] LABS: BASOPHILS PERCENT AUTO 0.3 % (0.0-1.0); HEMATOCRIT 38.7 % (37.0-47.0); IMMATURE GRAN ABSOLUTE AUTO 0.02 K/mm3 (0.00-0.05); IMMATURE GRAN PERCENT AUTO 0.3 % (0.0-0.4); LYMPHOCYTES ABSOLUTE AUTO 1.4 K/mm3 (1.0-4.8); LYMPHOCYTES PERCENT AUTO 20.1 % (24.0-44.0); MEAN CORPUSCULAR HEMOGLOBIN 28.9 pg (28.0-32.0); MEAN CORPUSCULAR HGB CONC 33.6 g/dl (32.0-36.0); MEAN PLATELET VOLUME 9.8 fl (9.4-12.3); MONOCYTES ABSOLUTE AUTO 0.5 K/mm3 (0.0-0.8); MONOCYTES PERCENT AUTO 6.6 % (0.0-8.0); NEUTROPHILS ABSOLUTE AUTO 5.1 K/mm3 (1.8-7.7); NEUTROPHILS PERCENT AUTO 72.7 % (41.0-71.0); PLATELET COUNT,PLT 221 K/mm3 (150-400); WHITE BLOOD CELL COUNT,WBC 7.07 K/mm3 (3.9-11.3)
[2023-12-17] MEDS ORDERED: VANCOmycin 2 GM/400 ML 2 GM in Premix Bag 1 BAG IV ONE (23:45)
[2023-12-18 00:51] LABS: PHOSPHORUS 3.8 mg/dL (2.6-4.7)
[2023-12-18] MEDS: Potassium Chloride 10 MEQ in Premix Bag 1 BAG IV SCH (01:37)
[2023-12-18] MEDS: Morphine 2 MG/ML SYRINGE IVPUSH PRN ×2 (01:37→22:21)
[2023-12-18] MEDS: Sodium Chloride 0.9% 500 ML ONE (01:38)
[2023-12-18] MEDS: cefTRIAXone 2 GM in Sodium Chloride 0.9% 100 ML IV SCH (02:23)
[2023-12-18] MEDS: SODIUM CHLORIDE 0.9% IV SCH ×2 (02:50→03:21)
[2023-12-18] MEDS: ACYCLOVIR IV SCH ×2 (02:50→03:21)
[2023-12-18] MEDS: Lactated Ringers 1,000 ML IV ONE (03:02)
[2023-12-18] MEDS: VANCOmycin 2 GM/400 ML 2 GM in Premix Bag 1 BAG IV ONE (04:49)
[2023-12-18] MEDS: Ondansetron 4 MG/2 ML SDV IV PRN (04:50)
[2023-12-18] MEDS: oxyCODONE 5 MG Tab PO PRN (04:50)
[2023-12-18 05:35] LABS: BASOPHILS PERCENT AUTO 0.3 % (0.0-1.0); EOSINOPHILS PERCENT AUTO 0.5 % (0.0-6.0); HEMATOCRIT 39.4 % (37.0-47.0); IMMATURE GRAN ABSOLUTE AUTO 0.02 K/mm3 (0.00-0.05); IMMATURE GRAN PERCENT AUTO 0.3 % (0.0-0.4); LYMPHOCYTES ABSOLUTE AUTO 2.1 K/mm3 (1.0-4.8); LYMPHOCYTES PERCENT AUTO 34.6 % (24.0-44.0); MEAN CORPUSCULAR HEMOGLOBIN 29.3 pg (28.0-32.0); MEAN CORPUSCULAR VOLUME 88.9 fl (83.0-99.0); MEAN PLATELET VOLUME 10.3 fl (9.4-12.3); MONOCYTES ABSOLUTE AUTO 0.5 K/mm3 (0.0-0.8); MONOCYTES PERCENT AUTO 8.9 % (0.0-8.0); NEUTROPHILS ABSOLUTE AUTO 3.4 K/mm3 (1.8-7.7); NEUTROPHILS PERCENT AUTO 55.4 % (41.0-71.0); PLATELET COUNT,PLT 210 K/mm3 (150-400); RED BLOOD CELL COUNT 4.43 M/mm3 (4.10-5.30); WHITE BLOOD CELL COUNT,WBC 6.07 K/mm3 (3.9-11.3)
[2023-12-18 05:57] LABS: ALBUMIN 3.3 g/dl (3.4-5.0); ANION GAP 14.7 (5-15); BILIRUBIN TOTAL 0.4 mg/dL (0.2-1.0); CALCIUM 8.3 mg/dL (8.5-10.1); CREATININE 0.8 mg/dL (0.55-1.02); EST CRCL DRUG DOSING (CG) 89.99 mL/min; PHOSPHORUS 4.1 mg/dL (2.6-4.7); POTASSIUM,K 3.7 mEq/L (3.5-5.1); PROTEIN TOTAL,TP 6.5 g/dl (6.4-8.2)
[2023-12-18] MEDS: Gadobenate Dimeglumine 529 MG/ML 20 ML SDV IVPUSH ONE (09:12)
[2023-12-18] MEDS: Sodium Chloride 0.9% 10 ML Syringe FLUSH SCH (09:12)
[2023-12-18] MEDS: Enoxaparin 40 MG/0.4 ML Syringe SUBCUT SCH (10:03)
[2023-12-18] MEDS: Lactase 9,000 Unit Tab PO PRN (12:37)
[2023-12-18] MEDS: HYDROmorphone 0.5 MG/0.5 ML Syringe IVPUSH PRN (12:38)
[2023-12-18] MEDS ORDERED: Albuterol 6.7 GM Inhaler INH PRN (12:44)
[2023-12-18] MEDS ORDERED: Saccharomyces Boulardii (Probiotic) 250 MG Cap PO PRN (13:30)
[2023-12-18] MEDS: VANCOmycin 1.5 GM/300 ML 1.5 GM in Premix Bag 1 BAG IV SCH (17:27)
[2023-12-18] MEDS: Acetaminophen 325 MG Tab PO PRN (19:51)
[2023-12-18] MEDS: Formoterol/Mometasone 200-5 MCG 8.8 GM Inhaler INH SCH (23:33)
[2023-12-19 06:38] LABS: BASOPHILS PERCENT AUTO 0.2 % (0.0-1.0); EOSINOPHILS ABSOLUTE AUTO 0.1 K/mm3 (0.0-0.4); EOSINOPHILS PERCENT AUTO 1.8 % (0.0-6.0); HEMATOCRIT 37.9 % (37.0-47.0); HEMOGLOBIN 12.9 gm/dl (12.0-16.0); IMMATURE GRAN ABSOLUTE AUTO 0.01 K/mm3 (0.00-0.05); IMMATURE GRAN PERCENT AUTO 0.2 % (0.0-0.4); LYMPHOCYTES ABSOLUTE AUTO 2.4 K/mm3 (1.0-4.8); LYMPHOCYTES PERCENT AUTO 44.3 % (24.0-44.0); MEAN CORPUSCULAR HEMOGLOBIN 29.7 pg (28.0-32.0); MEAN CORPUSCULAR VOLUME 87.3 fl (83.0-99.0); MEAN PLATELET VOLUME 9.3 fl (9.4-12.3); MONOCYTES ABSOLUTE AUTO 0.4 K/mm3 (0.0-0.8); MONOCYTES PERCENT AUTO 7.2 % (0.0-8.0); NEUTROPHILS ABSOLUTE AUTO 2.5 K/mm3 (1.8-7.7); NEUTROPHILS PERCENT AUTO 46.3 % (41.0-71.0); PLATELET COUNT,PLT 201 K/mm3 (150-400); RED BLOOD CELL COUNT 4.34 M/mm3 (4.10-5.30); WHITE BLOOD CELL COUNT,WBC 5.42 K/mm3 (3.9-11.3)
[2023-12-19 07:02] LABS: ANION GAP 10.5 (5-15); CALCIUM 8.4 mg/dL (8.5-10.1); CREATININE 0.8 mg/dL (0.55-1.02); EST CRCL DRUG DOSING (CG) 89.99 mL/min; POTASSIUM,K 3.5 mEq/L (3.5-5.1)
[2023-12-19] MEDS: Metoclopramide 10 MG Tab PO ONE (12:15)
[2023-12-19] MEDS ORDERED: Metoclopramide 10 MG/2 ML SDV IM ONE (12:15)
[2023-12-19 13:20] VITALS: BP 132/92; PULSE 74
[2023-12-19] MEDS ORDERED: Montelukast 10 MG Tab PO SCH (18:00)
[2023-12-20 12:47] LABS: VDRL, CSF Non Reactive (Non Reactive)
[2023-12-21 04:43] LABS: HSV SUBTYPE SOURCE CSF; HSV1 SUBTYPE BY PCR Not Detected; HSV2 SUBTYPE BY PCR Not Detected
== END 2023-12-19 14:11 | disposition home or self-care (01) | DRG 76 ==
LOC: JD.ED 15:59 → JD.MS 23:10
PROVIDERS: ADMIT Student in an Organized Health Care Education/Training Program; ATTEND Family Medicine
PROC: 009U3ZX Drainage of Spinal Canal, Percutaneous Approach, Diagnostic (ICD-10-PCS; principal; 2023-12-17)
DX: A87.0 Enteroviral meningitis (principal); H54.7 Unspecified visual loss; J45.30 Mild persistent asthma, uncomplicated; Z88.8 Allergy status to other drugs, medicaments and biological substances; Z90.89 Acquired absence of other organs; Z98.890 Other specified postprocedural states; Z79.899 Other long term (current) drug therapy
CPT/HCPCS: 0241U; 36415; 62270; 70450; 70450-26; 70553; 70553-26; 80048; 80053; 80202; 82945; 83735; 84100; 84157; 84703; 85025; 86140; 86592; 86788; 87040; 87070; 87205; 87483; 87529; 89050; 93005; 93010; 94640; 94761; 96361; 96374; 96375; 99222; 99238; 99285; 99285-25; A9270-GY; A9577; J0133; J0696; J1170; J1200; J1650; J1885; J2270; J2405; J3372; J3480; J3490; J7030; J7040; J7050; J7120